=== PATIENT | male | born 1950 | race Caucasian/White ===

== ENCOUNTER 2024-01-10 08:49 | Inpatient (IN) | payer MEDICARE, OTHER, SELFPAY ==
[2024-01-10] VITALS (14 sets, daily range): BP systolic 116–147; BP diastolic 76–104; BMI 24.1; BMI 23.4
[2024-01-10 05:43] LABS: ALT (SGPT) 20 U/L (0-50); AST (SGOT) 19 U/L (17-59); Albumin 4.3 g/dl (3.5-5.0); Alkaline Phosphatase 43 U/L (38-126); Blood Urea Nitrogen 19 mg/dl (9-20); Calcium 10.2 mg/dl (8.4-10.2); Carbon Dioxide 24 mmol/L (22-30); Chloride 105 mmol/L (98-107); Glucose 228 mg/dl (70-99); Potassium 4.5 mmol/L (3.5-5.1); Sodium 138 mmol/L (135-145); Total Bilirubin 0.8 mg/dl (0.2-1.3); Total Protein 6.9 g/dl (6.3-8.2); eGFR > 60.00
[2024-01-10 06:00] LABS: Troponin I 0.017 ng/ml
--- NOTE | 2024-01-10 06:13 | ED.GENMED ---
History of Present Illness
<Yaya Beck DO, Resident - Last Filed: 01/10/24 12:18>
General
Chief Complaint: Chest Pain
Time Seen by Provider: 01/10/24 06:02
History of Present Illness
History of Present Illness:
Pt is a 73 YO M presenting to the ED after an episode of chest tightness and pain intermittently from 2-5 AM. He reports having a donut and coffee last night past his normal meal time and then was awoken by the sensation of chest tightness and pain
with radiating pain to the left arm below the elbow. He took a Tums this morning thinking the discomfort was secondary to heartburn, but it did not resolve symptoms. He is currently stable and without pain, just mild residual chest tightness. He
reports no headaches, SOB, NVD, numbness or tingling in extremities, abdominal pain. He recently had COVID 2 weeks ago and has a history of emphysema and thoracic aneurysm.
If applicable-neuro sx onset
Onset of symptoms known: Yes
Date of onset of symptoms: 01/10/24
Time of onset of symptoms: 02:00
Past History
<Yaya Beck DO, Resident - Last Filed: 01/10/24 12:18>
Past History
ED Past Medical History: HTN, Hypercholesterolemia, NIDDM and Other (urinary retention)
ED Past Surgical History: Urological (TURP) and Other (prostate sx)
Social History
Tobacco: Former smoker
Alcohol: None
Drug: None
Personal:
Living: with family
Employment: Retired
Family History
Family History: Other ([place])
Review of Systems
<Yaya Beck DO, Resident - Last Filed: 01/10/24 12:18>
Review of Systems
Constitutional: Reports no symptoms
EENT: Reports no symptoms
Respiratory: Reports no symptoms
Cardiac: Reports chest pain and other (chest tightness )
ABD/GI: Reports no symptoms
Musculoskeletal: Reports no symptoms
Neurological: Reports no symptoms
Phy Exam
<Yaya Beck DO, Resident - Last Filed: 01/10/24 12:18>
General Physical Exam
General Presentation: well appearing and no apparent distress
General age: appears stated age
General Skin: warm and dry
General Habitus: normal
General Mental: alert
General Hydration: appears well hydrated
Cardiovascular Exam
Cardiovascular Exam: regular rate/rhythm, no edema, no gallop, no JVD, no murmur and normal peripheral pulses
Pulmonary Exam
Pulmonary Exam: lungs clear, no respiratory distress, no rales, chest non tender, no crackles, no rhonchi, no stridor, no wheezing and no cough
Gastrointestinal Exam
Gastrointestinal Exam: non tender, soft, no pulsatile mass and non distended
Psychiatric Exam
Psychiatric Exam: normal mood/affect
Scores
<Yaya Beck DO, Resident - Last Filed: 01/10/24 12:18>
Heart Score for Chest Pain Patients
STEMI patient?: Not applicable
Course
<Yaya Beck DO, Resident - Last Filed: 01/10/24 12:18>
Orders/Labs/Results
Orders:
Orders
01/10/24 05:03
EKG [Electrocardiogram (*1)] Urgent
Reason for Study: Chest Pain
EKG- Treatment ONCE
01/10/24 05:19
Complete Blood Count/With Diff Urgent
Comprehensive Metabolic Panel Urgent
Troponin I Urgent
01/10/24 Breakfast
Regular
At Your Request: Full Participation
Does patient need a safe tray?: No
01/10/24 06:37
CT Chest Angio W/wo Iv Contras Urgent
Comment:
Reason For Exam: chest pain, hx of thoracic aneurysm
01/10/24 07:52
Heparin 6,600 units IV NOW STA
01/10/24 07:[address] Non Medication Order As Directed
Physician Order: PTT 6 hours after initial start of Heparin infusion
Above order entered?: Yes
01/10/24 07:56
NT-proBNP Urgent
Comment: ADD ON
PTT Urgent
Comment: Obtain baseline before beginning heparin infusion if not already collected
Troponin I Urgent
01/10/24 08:00
Flush (0.9% Sodium Chloride) [Flush (Nss)] See Dose Instructions IV PER PROTOCOL
Heparin 98085 Units/250 ml 25,000 units in 250 ml IV PER PROTOCOL
Weight to be used for heparin protocol in kilograms (kg):: 83
Protocol:: DVT/PE
PTT Goal Range to be used:: PTT 73 to 111 seconds
Order type:: Initial
INITIAL Infusion Dose (UNITS/KG/hr) & then follow protocol:: 18 units/kg/hr
Infusion Dose in UNITS/hr & then follow protocol (UNITS/hr):: 1,500
INFUSION RATE in mL/hr & then follow protocol (mL/hr):: 15
For DVT/PE algorithm, re-bolus for low PTT?: Yes
PTT less than or equal to 64 seconds:: Re-bolus 80 units/kg (max 10,000units). Increase by 300 units/hr
(+ 3mL/hr)
PTT 64.1 to 72.9 seconds:: Re-bolus 40 units/kg (max 5,000 units). Increase by 200 units/hr
(+ 2mL/hr)
PTT 73 to 111 seconds:: Target Range. No change in rate.
PTT 111.1 to 130.9 seconds:: Decrease rate by 200 units/hr (- 2 mL/hr)
PTT 131 to 199.9 seconds:: HOLD for 1 hr. Then decrease by 300 units/hr (- 3mL/hr)
PTT greater than or equal to 200 seconds:: HOLD for 2 hrs & Notify Provider. Then decrease by 300 units/hr
(- 3mL/hr)
Lab follow-up:: Each change, PTT q6h until 2 consecutive are therapeutic. Then
PTT daily.
01/10/24 08:08
Heparin 6,600 units IV PRN PRN
01/10/24 08:09
Heparin 3,300 units IV PRN PRN
01/10/24 08:17
Admit/Transfer Patient As Directed
Co-Sign Provider:
Level of Care: Inpatient admission
Assign to:: Telemetry
Physician / Group: Dada Galindo
Diagnosis: PE with RV strain
Reason for Telemetry: Other
Other Reason for Telemetry: new PE
Date to Stop Telemetry: 01/12/24
Time to Stop Telemetry: 11:00
Reason for Hospitalization: PE with RV strain
Expected length of stay greater than two midnights?: Yes
ELOS- Estimated Length of Stay in days: 3
I certify the patient meets the requirements for IP care: Yes
01/10/24 08:20
Code Status As Directed
Resuscitation Status: Full Code
01/10/24 08:22
Add On- LAB Routine
Tests Added?: Pro-BNP
Consult Pulmonary [PULMONARY CONSULT] Routine
Consulting Provider: Leighann Alexis
Was physician already notified: Yes
Reason for consult: PE with RV strain
Venous Doppler Lwr Ext Bilat [US Periph Venous LOWER Ext Arnel] Routine
Comment:
Reason For Exam: PE
01/10/24 08:30
Heparin 74393 Units/250 ml 25,000 units in 250 ml IV PER PROTOCOL
Weight to be used for heparin protocol in kilograms (kg):: 83
Protocol:: DVT/PE
PTT Goal Range to be used:: PTT 73 to 111 seconds
Order type:: Initial
INITIAL Infusion Dose (UNITS/KG/hr) & then follow protocol:: 18 units/kg/hr
Infusion Dose in UNITS/hr & then follow protocol (UNITS/hr):: 1,500
INFUSION RATE in mL/hr & then follow protocol (mL/hr):: 15
For DVT/PE algorithm, re-bolus for low PTT?: Yes
PTT less than or equal to 64 seconds:: Re-bolus 80 units/kg (max 10,000units). Increase by 300 units/hr
(+ 3mL/hr)
PTT 64.1 to 72.9 seconds:: Re-bolus 40 units/kg (max 5,000 units). Increase by 200 units/hr
(+ 2mL/hr)
PTT 73 to 111 seconds:: Target Range. No change in rate.
PTT 111.1 to 130.9 seconds:: Decrease rate by 200 units/hr (- 2 mL/hr)
PTT 131 to 199.9 seconds:: HOLD for 1 hr. Then decrease by 300 units/hr (- 3mL/hr)
PTT greater than or equal to 200 seconds:: HOLD for 2 hrs & Notify Provider. Then decrease by 300 units/hr
(- 3mL/hr)
Lab follow-up:: Each change, PTT q6h until 2 consecutive are therapeutic. Then
PTT daily.
01/10/24 11:18
Acetaminophen [Tylenol] 650 mg PO Q4HPRN PRN
Bisacodyl [Dulcolax] 10 mg RECTAL [id number] PRN
Docusate W/Senna [Senokot-S] 1 tablet PO BIDPRN PRN
Polyethylene Glycol Powder [Miralax] 17 grams PO DAILYPRN PRN
01/10/24 11:18
Heparin Protocol- PTT Orders As Directed
PTT per Heparin protocol: -Obtain CBC and baseline PTT - if not already collected.
-Obtain PTT 6 hours from start of infusion. Then, every 6 hours until 2 consecutive
PTT's are therapeutic. Then, PTT Daily.
-With each rate change, obtain PTT every 6 hours until 2 consecutive PTT's are
therapeutic. Then, PTT Daily.
Activity As Directed
Activity Level: Bedrest
Bedside Commode
Notify MD As Directed
Notify physician if: PTT is greater than or equal to 200.
Vital Signs As Directed
Frequency: Per unit guidelines
O2 Therapy [RESP] Routine
Titrate/Wean O2 to maintain O2 sat greater than (%): 88
01/10/24 16:00
METFORMIN HCl [Glucophage] 850 mg PO TID
01/11/24 06:00
Basic Metabolic Panel IN AM
Complete Blood Count/No Diff IN AM
Troponin I IN AM
01/11/24 08:00
Allopurinol [Zyloprim] 100 mg PO DAILY
Atorvastatin [Lipitor] 20 mg PO Daily
01/12/24 06:00
Basic Metabolic Panel IN AM
Complete Blood Count/No Diff IN AM
01/12/24 11:00
DC Protocol for Telemetry ONCE
Abnormal Lab Results
01/10/24 01/10/24
05:19 07:56
RBC 4.41 L 10^6/uL
(4.70-6.10)
MCH 35.4 H pg
(27.0-31.0)
MCHC 37.8 H g/dL
(33.0-37.0)
Abs Immat Gran (auto) 0.1 H 10^3/uL
(0-0.05)
Absolute Neuts (auto) 6.8 H 10^3/uL
(1.4-6.5)
Immature Gran % 0.7 H %
(0-0.5)
Lymphocytes % 16.5 L %
(20.5-51.1)
Glucose 228 H mg/dl
(70-99)
Troponin I 0.214 H* D ng/ml
01/10/24 05:19
01/10/24 05:19
Vital Signs
Initial and Last Documented VS:
Initial Vital Signs
Temp Pulse Resp BP Pulse Ox
97.7 F 70 14 130/81 98
01/10/24 05:11 01/10/24 05:11 01/10/24 05:11 01/10/24 05:11 01/10/24 05:11
Last Documented Vital Signs
Temp Pulse Resp BP Pulse Ox
97.7 F 77 19 122/76 96
01/10/24 05:11 01/10/24 10:30 01/10/24 10:30 01/10/24 10:00 01/10/24 10:30
Aleshialt;Omi Sheppard, - Last Filed: 01/10/24 08:04>
Orders/Labs/Results
Orders:
Orders
01/10/24 05:03
EKG [Electrocardiogram (*1)] Urgent
Reason for Study: Chest Pain
EKG- Treatment ONCE
01/10/24 05:19
Complete Blood Count/With Diff Urgent
Comprehensive Metabolic Panel Urgent
Troponin I Urgent
01/10/24 Breakfast
Regular
At Your Request: Full Participation
Does patient need a safe tray?: No
01/10/24 06:37
CT Chest Angio W/wo Iv Contras Urgent
Comment:
Reason For Exam: chest pain, hx of thoracic aneurysm
01/10/24 07:52
Heparin 6,600 units IV NOW STA
01/10/24 07:[address] Non Medication Order As Directed
Physician Order: PTT 6 hours after initial start of Heparin infusion
Above order entered?: Yes
01/10/24 07:56
NT-proBNP Urgent
Comment: ADD ON
PTT Urgent
Comment: Obtain baseline before beginning heparin infusion if not already collected
Troponin I Urgent
01/10/24 08:00
Flush (0.9% Sodium Chloride) [Flush (Nss)] See Dose Instructions IV PER PROTOCOL
Heparin 70790 Units/250 ml 25,000 units in 250 ml IV PER PROTOCOL
Weight to be used for heparin protocol in kilograms (kg):: 83
Protocol:: DVT/PE
PTT Goal Range to be used:: PTT 73 to 111 seconds
Order type:: Initial
INITIAL Infusion Dose (UNITS/KG/hr) & then follow protocol:: 18 units/kg/hr
Infusion Dose in UNITS/hr & then follow protocol (UNITS/hr):: 1,500
INFUSION RATE in mL/hr & then follow protocol (mL/hr):: 15
For DVT/PE algorithm, re-bolus for low PTT?: Yes
PTT less than or equal to 64 seconds:: Re-bolus 80 units/kg (max 10,000units). Increase by 300 units/hr
(+ 3mL/hr)
PTT 64.1 to 72.9 seconds:: Re-bolus 40 units/kg (max 5,000 units). Increase by 200 units/hr
(+ 2mL/hr)
PTT 73 to 111 seconds:: Target Range. No change in rate.
PTT 111.1 to 130.9 seconds:: Decrease rate by 200 units/hr (- 2 mL/hr)
PTT 131 to 199.9 seconds:: HOLD for 1 hr. Then decrease by 300 units/hr (- 3mL/hr)
PTT greater than or equal to 200 seconds:: HOLD for 2 hrs & Notify Provider. Then decrease by 300 units/hr
(- 3mL/hr)
Lab follow-up:: Each change, PTT q6h until 2 consecutive are therapeutic. Then
PTT daily.
01/10/24 08:08
Heparin 6,600 units IV PRN PRN
01/10/24 08:09
Heparin 3,300 units IV PRN PRN
01/10/24 08:17
Admit/Transfer Patient As Directed
Co-Sign Provider:
Level of Care: Inpatient admission
Assign to:: Telemetry
Physician / Group: Dada Galindo
Diagnosis: PE with RV strain
Reason for Telemetry: Other
Other Reason for Telemetry: new PE
Date to Stop Telemetry: 01/12/24
Time to Stop Telemetry: 11:00
Reason for Hospitalization: PE with RV strain
Expected length of stay greater than two midnights?: Yes
ELOS- Estimated Length of Stay in days: 3
I certify the patient meets the requirements for IP care: Yes
01/10/24 08:20
Code Status As Directed
Resuscitation Status: Full Code
01/10/24 08:22
Add On- LAB Routine
Tests Added?: Pro-BNP
Consult Pulmonary [PULMONARY CONSULT] Routine
Consulting Provider: Leighann Alexis
Was physician already notified: Yes
Reason for consult: PE with RV strain
Venous Doppler Lwr Ext Bilat [US Periph Venous LOWER Ext Arnel] Routine
Comment:
Reason For Exam: PE
01/10/24 08:30
Heparin 62968 Units/250 ml 25,000 units in 250 ml IV PER PROTOCOL
Weight to be used for heparin protocol in kilograms (kg):: 83
Protocol:: DVT/PE
PTT Goal Range to be used:: PTT 73 to 111 seconds
Order type:: Initial
INITIAL Infusion Dose (UNITS/KG/hr) & then follow protocol:: 18 units/kg/hr
Infusion Dose in UNITS/hr & then follow protocol (UNITS/hr):: 1,500
INFUSION RATE in mL/hr & then follow protocol (mL/hr):: 15
For DVT/PE algorithm, re-bolus for low PTT?: Yes
PTT less than or equal to 64 seconds:: Re-bolus 80 units/kg (max 10,000units). Increase by 300 units/hr
(+ 3mL/hr)
PTT 64.1 to 72.9 seconds:: Re-bolus 40 units/kg (max 5,000 units). Increase by 200 units/hr
(+ 2mL/hr)
PTT 73 to 111 seconds:: Target Range. No change in rate.
PTT 111.1 to 130.9 seconds:: Decrease rate by 200 units/hr (- 2 mL/hr)
PTT 131 to 199.9 seconds:: HOLD for 1 hr. Then decrease by 300 units/hr (- 3mL/hr)
PTT greater than or equal to 200 seconds:: HOLD for 2 hrs & Notify Provider. Then decrease by 300 units/hr
(- 3mL/hr)
Lab follow-up:: Each change, PTT q6h until 2 consecutive are therapeutic. Then
PTT daily.
01/10/24 11:18
Acetaminophen [Tylenol] 650 mg PO Q4HPRN PRN
Bisacodyl [Dulcolax] 10 mg RECTAL [id number] PRN
Docusate W/Senna [Senokot-S] 1 tablet PO BIDPRN PRN
Polyethylene Glycol Powder [Miralax] 17 grams PO DAILYPRN PRN
01/10/24 11:18
Heparin Protocol- PTT Orders As Directed
PTT per Heparin protocol: -Obtain CBC and baseline PTT - if not already collected.
-Obtain PTT 6 hours from start of infusion. Then, every 6 hours until 2 consecutive
PTT's are therapeutic. Then, PTT Daily.
-With each rate change, obtain PTT every 6 hours until 2 consecutive PTT's are
therapeutic. Then, PTT Daily.
Activity As Directed
Activity Level: Bedrest
Bedside Commode
Notify MD As Directed
Notify physician if: PTT is greater than or equal to 200.
Vital Signs As Directed
Frequency: Per unit guidelines
O2 Therapy [RESP] Routine
Titrate/Wean O2 to maintain O2 sat greater than (%): 88
01/10/24 16:00
METFORMIN HCl [Glucophage] 850 mg PO TID
01/11/24 06:00
Basic Metabolic Panel IN AM
Complete Blood Count/No Diff IN AM
Troponin I IN AM
01/11/24 08:00
Allopurinol [Zyloprim] 100 mg PO DAILY
Atorvastatin [Lipitor] 20 mg PO Daily
01/12/24 06:00
Basic Metabolic Panel IN AM
Complete Blood Count/No Diff IN AM
01/12/24 11:00
DC Protocol for Telemetry ONCE
Abnormal Lab Results
01/10/24 01/10/24
05:19 07:56
RBC 4.41 L 10^6/uL
(4.70-6.10)
MCH 35.4 H pg
(27.0-31.0)
MCHC 37.8 H g/dL
(33.0-37.0)
Abs Immat Gran (auto) 0.1 H 10^3/uL
(0-0.05)
Absolute Neuts (auto) 6.8 H 10^3/uL
(1.4-6.5)
Immature Gran % 0.7 H %
(0-0.5)
Lymphocytes % 16.5 L %
(20.5-51.1)
Glucose 228 H mg/dl
(70-99)
Troponin I 0.214 H* D ng/ml
01/10/24 05:19
01/10/24 05:19
Vital Signs
Initial and Last Documented VS:
Initial Vital Signs
Temp Pulse Resp BP Pulse Ox
97.7 F 70 14 130/81 98
01/10/24 05:11 01/10/24 05:11 01/10/24 05:11 01/10/24 05:11 01/10/24 05:11
Last Documented Vital Signs
Temp Pulse Resp BP Pulse Ox
97.7 F 77 19 122/76 96
01/10/24 05:11 01/10/24 10:30 01/10/24 10:30 01/10/24 10:00 01/10/24 10:30
<Yaya Beck DO, Resident - Last Filed: 01/10/24 12:18>
MDM/Problems Addressed
Differential Diagnosis Includes:
pulmonary embolism
MDM/Problems Addressed:
Pt is a 73 YO M presenting to the ED after an episode of chest tightness and pain intermittently from 2-[address] Chest shows PE on left side. Heparin drip started.
Chronic conditions affecting care:
Emphysema, lung disease, recent COVID
Acute Exacerbation and/or Progression of Chronic Illness:
Lung disease
<Yaya Beck DO, Resident - Last Filed: 01/10/24 12:18>
*Radiology
Radiology exam reviewed: preliminary read by ED provider
*Pulse Oximetry
Patient hypoxic: no
*EKG
Interpreted by ED Provider?: Yes
EKG Intrepretation Date: 01/10/24
Interpretation: normal
Heart Rate: 65
Rate: normal
Rhythm: sinus
Olean: normal axis
Interval: normal interval
QRS Pattern: low voltage
Ischemia: other (can not rule out inferior infarct)
*Grain Operator Interpretation
Rate: normal
Interpretation: normal
Heart Rate: 85
Rhythm: sinus
*Critical Care Note
Total Time (30-74mins, 75-104mins- exclusive of procedures): 35 minutes
ED Attending Note
<Yaya Beck DO, Resident - Last Filed: 01/10/24 12:18>
-
Portions of this chart may have been created with voice recognition software.� Occasional wrong word or��sound alike� substitutions may have occurred due to the inherent limitations of voice recognition software.
<Omi Sheppard DO - Last Filed: 01/10/24 08:04>
ED Attending Note
Patient seen and examined by attending physician: Yes
I performed a history and physical exam of patient and discussed management with resident, I reviewed resident's note and agree with documented findings and plan of care.: Yes
ED Attending Note:
Agree with resident's note.
Patient with central chest pain this morning. Symptoms are mostly gone. Patient states he had some numbness in his left arm. 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
Vital signs acceptable
General: Awake, Alert, Oriented X3. No acute distress.
Vitals: unremarkable
Head: Atraumatic
Eyes: Pupils equal, EOMI
Throat: Airway intact, no exudates
Neck: Trachea midline
Lungs: Clear and equal b/l
Heart: Regular rate, no murmurs
Abd: Soft, Nontender, No pulsatile mass
Neuro: Nonfocal
Skin: Warm, dry, no rash
Extremities: pulses equal b/l, no edema
EKG shows no ischemic changes
Labs are reassuring
We will repeat troponin at [address] of the chest obtained because the patient described some history of a aortic issue. CT does not show any significant issue with the thoracic aorta but he does have a relatively large PE on the left with some right heart strain per radiology.
Patient meets criteria for a PERT alert. Discussed patient with Dr. Shorty Alexis who recommends anticoagulation only. Heparin ordered. Patient will be admitted.
Critical care statement: A total of 35 minutes of critical care time was provided for this patient. This includes management of unstable vital signs, evaluation of the patient at bedside, reviewing the patient's pertinent medical records, discussion
with consultants, review of old EKGs and review of pertinent medical records. This time with separate from time utilized to perform the aforementioned documented procedures
Discharge Plan
Departure
Patient Disposition: Admit
Date of Disposition: 01/10/24
Time of Disposition: 08:15
Admit to: Telemetry
Presentation/result/management discussed w/ accepting MD/DO: Hospitalist
Patient with high blood pressure during this ER visit?: Yes
Condition: Fair
Discharge Problem:
Pulmonary embolism
Interventions
Interventions:
*Risk Screen - Suicide Last Done: 01/10/24 05:11
*General Assessment Last Done: 01/10/24 05:11
*Neglect/Abuse Screening Last Done: 01/10/24 05:11
ED- Fall Risk Assessment Last Done: 01/10/24 06:21
*ED COVID-19 Vaccine History Last Done: 01/10/24 12:05
ED- Cardiac Assessment Last Done: 01/10/24 06:21
[2024-01-10 06:17] LABS: % Basophils 0.6 % (0-2); % Eosinophils 4.4 % (0-6); % Immature Granulocytes 0.7 % (0-0.5); % Lymphocytes 16.5 % (20.5-51.1); % Monocytes 6.5 % (1.7-9.3); % Neutrophils 71.3 % (42.2-75.2); Absolute Basophils 0.1 10^3/uL (0-0.2); Absolute Eosinophils 0.4 10^3/uL (0-0.7); Absolute Immature Granulocytes 0.1 10^3/uL (0-0.05); Absolute Lymphocytes 1.6 10^3/uL (1.2-3.4); Absolute Monocytes 0.6 10^3/uL (0.1-0.6); Absolute Neutrophils 6.8 10^3/uL (1.4-6.5); Hematocrit 41.3 % (39.0-52.0); Hemoglobin 15.6 g/dL (13.0-18.0); Mean Corp Hgb Conc. 37.8 g/dL (33.0-37.0); Mean Corpuscular Hgb 35.4 pg (27.0-31.0); Mean Corpuscular Volume 93.7 fL (80.0-94.0); Mean Platelet Volume 8.3 fL (7.4-10.4); Nucleated Red Blood Cells % 0 % (-); Platelet Count 252 10^3/uL (130-400); Red Blood Cell Count 4.41 10^6/uL (4.70-6.10); Red Cell Dist. Width 11.9 % (11.5-14.5); White Blood Cell Count 9.5 10^3/uL (4.8-10.8)
--- NOTE | 2024-01-10 07:56 | ED TECH ---
A PERT ALERT was called #[id number]# Per @07:54 AM.
[2024-01-10] MEDS: HEPARIN 6600 UNITS IV ×2 (08:02→22:16)
[2024-01-10] MEDS: HEPARIN 25000 UNITS/250 ML IV (08:07)
[2024-01-10 08:21] LABS: APTT 25.6 Sec (23.4-35.0)
--- NOTE | 2024-01-10 08:23 | HPS.HSE ---
Family Physician
-
Family Physician: Char Lugo
Chief Complaint
-
Left-sided chest discomfort
History of Present Illness
Patient is 73-year-old male with past medical history of essential hypertension, hyperlipidemia, type 2 diabetes, BPH came to ER with new onset of left-sided chest discomfort. This woke patient up from night sleep 2 AM in the morning. Patient was
having some associated diaphoresis and radiation to left arm. Pain was aggravated by cough/deep inspiration. No associated dry cough fever. Denies of palpitation/dizziness.
Denies of any abdominal/ complaints
Of note patient recovering from COVID and was tested positive first on 12/28/2023 and has finished 5 days of Paxlovid course. This was patient's third COVID episode and patient have been vaccinated in the past.
Medical History
Past Medical History
Past Medical History: Reports Other
Additional Past Medical History:
essential hypertension, hyperlipidemia, type 2 diabetes, BPH
Past Surgical History: Reports Other
Social History
Tobacco: Former Smoker
Alcohol: Occasional
Drug: None
Personal:
Living: With Family
Family History
Family History: Not pertinent
Allergies / Home Medications
Allergies reflects when Allergies were last updated in [facility].
Home Medications with original date entered in [facility]
Allergy/Medication List:
Allergies
Allergy/AdvReac Type Severity Reaction Status Date / Time
No Known Allergies Allergy Verified 11/15/18 10:46
Home Medications
allopurinol 100 mg tablet 100 mg PO DAILY 06/24/18
aspirin 81 mg tablet,delayed release 81 mg PO DAILY 06/24/18
lisinopril 20 mg tablet 20 mg PO DAILY 06/24/18
metformin 850 mg tablet 850 mg PO TID 06/24/18
metoprolol tartrate 100 mg tablet 100 mg PO DAILY 06/24/18
simvastatin 40 mg tablet 40 mg PO Daily 10/30/18
acetaminophen 325 mg tablet 650 mg (2 x 325 mg) PO Q4HPRN PRN mild pain/MOCTEZUMA/temp> 100.4F 11/18/18
levofloxacin 500 mg tablet 500 mg PO DAILY #14 tabs 11/18/18
tamsulosin 0.4 mg capsule 0.4 mg PO HS ##30 11/18/18
Review of Systems
-
A 12 point ROS was completed and negative except as noted: Yes
Physical Exam
Vital Signs
Vital Signs
Temp Pulse Resp BP Pulse Ox
97.7 F 85 19 134/84 95
01/10/24 05:11 01/10/24 07:30 01/10/24 07:30 01/10/24 07:12 01/10/24 07:30
Physical Exam
General: No Apparent Distress
HEENT: Atraumatic and Oxygen
Respiratory: Clear
Cardiac: S1/S2 and Regular Rhythm; No Murmur or Rub
GI: Soft, Non Tender, Non Distended and Normal Bowel Sounds; No Organomegaly
Rectal: Deferred by Provider
Musculoskeletal: No Clubbing, No Cyanosis and No Edema
Skin: No Rash
Neuro: Nonfocal/grossly intact
Laboratory Results
-
01/10/24 05:19
01/10/24 05:19
Laboratory Results
Total Bilirubin 0.8 mg/dl (0.2-1.3) 01/10/24 05:19
AST 19 U/L (17-59) 01/10/24 05:19
ALT 20 U/L (0-50) 01/10/24 05:19
Alkaline Phosphatase 43 U/L (38-126) 01/10/24 05:19
Troponin I 0.017 ng/ml 01/10/24 05:19
Impression/Plan
-
CT chest PE
Multiple left-sided pulmonary emboli. Moderate clot burden. Findings suggesting mild right heart strain.
No evidence of aortic dissection.
Mild emphysematous disease. Prior benign granulomatous disease.

1. Left sided PE
-Patient presented with new onset of left-sided chest discomfort.
-CT chest PE done in ER showing large proximal pulmonary arterial left-sided clot
-Minimal troponin elevation with signs of heart RV strain with RV/YAEL ratio of 1
-proBNP 107
-Patient not hypotensive, not hypoxic
-PESI score of 83, class II , 30 day mortality rate of 1.7 to 3.5%
-Lower extremity venous Doppler negative
-No travel history/no malignancy history. Clot is likely provoked by recent COVID infection.
-Maintain on heparin drip for now
-Monitor in hospital for next 24 to 48 hours
-Pulmonology has been asked for further help as well.
2. Essential hypertension
-Hold blood pressure medication unless systolic blood pressure above 160
-Can resume lisinopril first or metoprolol
3. Hyperlipidemia
-Maintain on home dose of simvastatin
4. [id number] diabetes mellitus
-Continue metformin and sliding scale
5. Troponin elevation
-PE related, Nonischemic cardiomyopathy related
DVT PPX - heparin drip
Full code
Total time spent : 78 mins
I personally saw and examined the patient.
I have reviewed all diagnostic interpretations and treatment plans as written.
Time includes patient management by me, time spent at the patients bedside, time to review lab and imaging results, discussing patient care, documentation in the medical record, and time spent with the family or caregiver and discussing care plan
with RN/Consultants.
[2024-01-10 08:39] LABS: Troponin I 0.214 ng/ml
[2024-01-10 09:43] LABS: NT-proBNP 107 pg/ml
--- NOTE | 2024-01-10 13:07 | CON.PUL ---
Consultation
Consultation Request
Date/Time Consultation Requested: 01/10/24
Date/Time Consultation Performed: 01/10/24
Performing Provider: Vanesa
Reason for Consultation: PE
Medical History
-
History of Present Illness:
Patient is a 73-year-old male with previous history of hypertension, diabetes presenting to ER with acute onset of left-sided chest discomfort. He was having some associated diaphoresis and radiation to left arm. His pain was aggravated by
cough and deep inspiration. On arrival to ER, he underwent CT showing mild thrombus formation in the distal left main pulmonary artery extending into segmental and subsegmental branches. He was hemodynamically stable in ER, there was no indication
to administer tPA. He is now started on IV heparin drip. He has never had history of VTE in the past. Of note, he was positive for COVID 12/28/2023 and finished 5 days of Paxlovid. He also has significant family history of VTE in his daughter who
is currently on anticoagulation and follows with outpatient hematology.
He does have a history of emphysema, follows with outpatient pulmonology at [place].
Past Medical History
Past Medical History: Other (see below)
Social History
Tobacco: Former Smoker
Alcohol: None
Drug: None
Family History
Family History: Reviewed & Not Pertinent
Allergies / Home Medications
Allergies
Allergy/AdvReac Type Severity Reaction Status Date / Time
No Known Allergies Allergy Verified 11/15/18 10:46
Home Medications
�Medication �Instructions �Recorded �Confirmed �Last Taken �Type
allopurinol 100 mg tablet 100 mg PO DAILY 06/24/18 11/15/18 10/29/18 History
aspirin 81 mg tablet,delayed 81 mg PO DAILY 06/24/18 11/15/18 10/29/18 History
release
lisinopril 20 mg tablet 20 mg PO DAILY 06/24/18 11/15/18 10/29/18 History
metformin 850 mg tablet 850 mg PO TID 06/24/18 11/15/18 10/29/18 History
metoprolol tartrate 100 mg tablet 100 mg PO DAILY 06/24/18 11/15/18 10/29/18 History
simvastatin 40 mg tablet 40 mg PO Daily 10/30/18 11/15/18 10/29/18 History
acetaminophen 325 mg tablet 650 mg (2 x 325 mg) PO Q4HPRN PRN 11/18/18 Unknown Rx
mild pain/MOCTEZUMA/temp> 100.4F
levofloxacin 500 mg tablet 500 mg PO DAILY #14 tabs 11/18/18 Unknown Rx
tamsulosin 0.4 mg capsule 0.4 mg PO HS ##30 11/18/18 Unknown Rx
Review of Systems
-
History Source: Patient
All other systems: Negative unless noted
Vitals / Labs / Diagnostic Testing
Vital Signs
Temp Pulse Resp BP Pulse Ox
97.7 F 77 19 122/76 96
01/10/24 05:11 01/10/24 10:30 01/10/24 10:30 01/10/24 10:00 01/10/24 10:30
Lab Data
01/10/24 05:19
01/10/24 05:19
Laboratory Results
01/10/24
07:56
APTT 25.6
Diagnostic Testing:
Physical Exam
-
HEENT: Normocephalic, Anicteric and Moist Mucous Membranes
Cardiovascular: S1/S2 and Regular Rhythm
Respiratory: Clear and Non-Labored Respirations
GI: Soft, Non Distended and Non Tender
Neurology: Awake, Alert, Oriented, AO x 3 and No Motor Deficits
Skin: Warm, Dry and Good Color
General: Comfortable and Other (NAD)
Assessment
-
Patient is a 73-year-old male with previous history of hypertension, diabetes presenting to ER with acute onset of left-sided chest discomfort. He was having some associated diaphoresis and radiation to left arm. His pain was aggravated by
cough and deep inspiration. On arrival to ER, he underwent CT showing mild thrombus formation in the distal left main pulmonary artery extending into segmental and subsegmental branches. He was hemodynamically stable in ER, there was no indication
to administer tPA. He is now started on IV heparin drip. Of note, he was positive for COVID 12/28/2023 and finished 5 days of Paxlovid. We are consulted for eval.
Acute L sided PE
L sided chest pain
Elevated trops, non [place] related
Recent COVID illness
Family history of VTE
Conditions present prior to admission
Hypertension
Hyperlipidemia
Type 2 diabetes
BPH s/p TURP
Emphysema
Former smoker
Plan
No oxygen was needed on admission, currently saturating >90% on RA
Prior history of lung disease is noted including emphysema
Follows with outpatient pulmonology at [place]
States he obtains yearly CT screening there
No prior PFTs for review
CXR/CT obtained indicating new L sided PE
Duplex negative
Small burden with elevated trops but otherwise hemodynamically stable
Agree that there is no indication for tPA, he is now on IV heparin
Other imaging reviewed
Will need to transition to oral anticoagulation pending insurance
No prior echo for review
We will need updated study while inpatient
Smoking history noted
Encourage continued smoking cessation
Daughter has history of VTE, currently following with hematology
May need to have workup as an outpatient
May have been provoked by recent episode of COVID however family predominance should likely be ruled out
We will follow
Diagnostic Data
Chest X-Ray:
CT Scan: CTA 01/10/24- There is mild thrombus formation in the distal left main pulmonary artery extending into segmental and subsegmental vessels of the left upper lobe, left lower lobe and lingula. The right ventricle is slightly larger than the
left with a RV/LV ratio greater than 1. It is 1.1.
There are no abnormal pleural or parenchymal pulmonary masses. There is no significant parenchymal airspace disease.There is no pleural effusion.There are no abnormal mediastinal masses.
There is no hilar lymphadenopathy.There is no mediastinal lymphadenopathy.There is no axillary lymphadenopathy.
The osseous structures show mild degenerative disease. No acute fractures are noted.
There is mild cystic change in lungs consistent with emphysematous disease. There are also findings consistent with prior benign granulomatous disease.
Duplex - No sonographic evidence for lower extremity venous thrombosis.
Echo:
PFT's:
Reports and relevant images were personally reviewed.
Total time spent on this consultation __75__ includes review of history, physical exam, medications, laboratory data, personal review of imaging, extensive review of outpatient records, discussion with care team and respiratory therapy.
[2024-01-10 15:07] LABS: APTT 110.9 Sec (23.4-35.0)
[2024-01-10] MEDS: GLUCOPHAGE 850 MG PO ×2 (15:52→22:45)
--- NOTE | 2024-01-10 16:55 | PTCARENOTE ---
Patient resting comfortably, no c/o pian. Family at bedside. Plan of care discussed with patient and spouse.
--- NOTE | 2024-01-10 16:55 | PTCARENOTE ---
Report called to [facility]. Patient to go to room 415-1
[2024-01-10 17:19] LABS: Glucose - Point of Care 194 mg/dl (70-99)
--- NOTE | 2024-01-10 18:27 | PTCARENOTE ---
Rec'd pt from ER. walked from stretcher to bed. denies pain. Heparin drip infusing at 1500 units/hr. next ptt due at 2044. call [facility] in reach.
[2024-01-10] MEDS: NOVOLOG FLEXPEN-LOW RESISTANCE 1 UNITS SC (18:32)
[2024-01-10 21:07] LABS: APTT 53.6 Sec (23.4-35.0)
[2024-01-10 21:40] LABS: Glucose - Point of Care 225 mg/dl (70-99)
[2024-01-11] MEDS: HEPARIN 25000 UNITS/250 ML IV ×2 (01:45→17:55)
[2024-01-11 03:01] VITALS: BP 106/74
[2024-01-11 07:18] LABS: Glucose - Point of Care 243 mg/dl (70-99)
[2024-01-11 07:58] VITALS: BP 136/78
[2024-01-11 08:03] LABS: Hemoglobin 15.5 g/dL (13.0-18.0); Mean Corp Hgb Conc. 37.8 g/dL (33.0-37.0); Mean Corpuscular Hgb 35.4 pg (27.0-31.0); Mean Corpuscular Volume 93.6 fL (80.0-94.0); Mean Platelet Volume 8.8 fL (7.4-10.4); Platelet Count 247 10^3/uL (130-400); Red Blood Cell Count 4.38 10^6/uL (4.70-6.10); Red Cell Dist. Width 11.9 % (11.5-14.5); White Blood Cell Count 10.4 10^3/uL (4.8-10.8)
[2024-01-11] MEDS: GLUCOPHAGE 850 MG PO ×3 (08:26→22:12)
[2024-01-11] MEDS: LIPITOR 20 MG PO (08:26)
[2024-01-11] MEDS: ZYLOPRIM 100 MG PO (08:26)
[2024-01-11] MEDS: NOVOLOG FLEXPEN-LOW RESISTANCE 2 UNITS SC ×3 (08:27→16:21)
[2024-01-11 08:40] LABS: APTT 191.1 Sec (23.4-35.0)
[2024-01-11 08:49] LABS: Blood Urea Nitrogen 19 mg/dl (9-20); Calcium 9.4 mg/dl (8.4-10.2); Carbon Dioxide 21 mmol/L (22-30); Chloride 101 mmol/L (98-107); Estimated Creatinine Clearance 57 ml/min; Glucose 164 mg/dl (70-99); Potassium 4.2 mmol/L (3.5-5.1); Sodium 136 mmol/L (135-145); eGFR 58.01
--- NOTE | 2024-01-11 09:49 | CM ---
Addendum entered by Meagan Kessler 01/11/24 11:34:
Correction, Eliquis cost is $549.90, updated. 30 day coupon provided.
Original Note:
Patient seen bedside.
DX PE, on hep gtt.
IA completed.
Patient lives with spouse in a 2 story home with 2 ABEBA.
No difficulty with stairs.
No assistive devices.
Patient independent prior to admission without AD.
Patient has not have VN, denies home care needs at this time.
CM checked Eliquis and Xarelto costs and per [employer] [facility] check:
Eliquis $135.60 per month
Xarelto #541.40 per month
PCP: Dr Lugo
Pharmacy: [facility]
Plan: home no needs anticipated.
--- NOTE | 2024-01-11 11:02 | W.PN.PUL3 ---
Today's Communication / Plan
-
Doing well today, remains on IV heparin
Transition to OAC per team
Awaiting ECHO in AM
Outpatient pulmonary FU recommended, seen at [facility]
Dischage planning hopefully in next 24 hours
We reviewed plan of care in detail today with family present at bedside
Assessment
-
Patient is a 73-year-old male with previous history of hypertension, diabetes presenting to ER with acute onset of left-sided chest discomfort. He was having some associated diaphoresis and radiation to left arm. His pain was aggravated by
cough and deep inspiration. On arrival to ER, he underwent CT showing mild thrombus formation in the distal left main pulmonary artery extending into segmental and subsegmental branches. He was hemodynamically stable in ER, there was no indication
to administer tPA. He is now started on IV heparin drip. Of note, he was positive for COVID 12/28/2023 and finished 5 days of Paxlovid. We are consulted for eval.
Acute L sided PE
L sided chest pain
Elevated trops, non [place] related
Recent COVID illness
Family history of VTE
Conditions present prior to admission
Hypertension
Hyperlipidemia
Type 2 diabetes
BPH s/p TURP
Emphysema
Former smoker
Plan
No oxygen was needed on admission, currently saturating >90% on RA
Prior history of lung disease is noted including emphysema
Follows with outpatient pulmonology at [place]
States he obtains yearly CT screening there
No prior PFTs for review
CXR/CT obtained indicating new L sided PE
Duplex negative
Small burden with elevated trops but otherwise hemodynamically stable
Agree that there is no indication for tPA, he is now on IV heparin
Other imaging reviewed
Transition to OAC tonight
No prior echo for review
We will need updated study while inpatient, pending for friday
Smoking history noted
Encourage continued smoking cessation
Daughter has history of VTE, currently following with hematology
May need to have workup as an outpatient
May have been provoked by recent episode of COVID however family predominance should likely be ruled out
Outpatient pulmonary FU at [facility] Dr Andrea Handy
Discharge planning in next 24 hours when ECHO obtained
Diagnostic Data
Chest X-Ray:
CT Scan: CTA 01/10/24- There is mild thrombus formation in the distal left main pulmonary artery extending into segmental and subsegmental vessels of the left upper lobe, left lower lobe and lingula. The right ventricle is slightly larger than the
left with a RV/LV ratio greater than 1. It is 1.1.
There are no abnormal pleural or parenchymal pulmonary masses. There is no significant parenchymal airspace disease.There is no pleural effusion.There are no abnormal mediastinal masses.
There is no hilar lymphadenopathy.There is no mediastinal lymphadenopathy.There is no axillary lymphadenopathy.
The osseous structures show mild degenerative disease. No acute fractures are noted.
There is mild cystic change in lungs consistent with emphysematous disease. There are also findings consistent with prior benign granulomatous disease.
Duplex - No sonographic evidence for lower extremity venous thrombosis.
Echo:
PFT's:
Reports and relevant images were personally reviewed.
Total time spent on this consultation __51__ includes review of history, physical exam, medications, laboratory data, personal review of imaging, extensive review of outpatient records, discussion with care team and respiratory therapy.
Subjective Data
-
Date of Service:
Date of Service: January 11, 2024
Chief Complaint: Pulmonary Follow Up
Subjective:
no new events/complaints
stable on RA
remains on IV heparin
Objective Data
Data Reviewed
Vital Signs / I&O / Oxygen:
Vital Signs
Temp Pulse Resp BP Pulse Ox
97.9 F 72 16 136/78 97
01/11/24 07:58 01/11/24 07:58 01/11/24 07:58 01/11/24 07:58 01/11/24 07:58
Intake and Output
0701/11/24 01/12/24
06:59 06:59 06:59
Intake Total 1440 / 1440
Output Total 1400 / 1400
Balance 40 / 40
SaO2 97
Physical Exam
General: Comfortable and Other (NAD)
HEENT: Normocephalic, Anicteric and Moist Mucous Membranes
Cardiovascular: S1-S2 and Regular Rhythm
Respiratory: Clear and Non-Labored Respirations
GI: Soft, Non Distended and Non Tender
Neurology: Awake, Alert, Oriented, AO x 3 and No Motor Deficits
Skin: Warm, Dry and Other (hyperpigmented skin)
Labs/Micro/Reports
Lab Data
01/11/24 05:22
01/11/24 05:22
Laboratory Results
01/10/24 01/10/24 01/11/24
14:44 20:49 05:22
APTT 110.9 H 53.6 H 191.1 H*
[2024-01-11 11:19] VITALS: BP 137/87
--- NOTE | 2024-01-11 11:44 | W.PN.HOSP.TC ---
Today's Communication/Plan
-
switch to eliquis in evening
TTE tomorrow
dischargeable after TTE
Assessment / Plan
Assessment / Plan
CT chest PE
Multiple left-sided pulmonary emboli. Moderate clot burden. Findings suggesting mild right heart strain.
No evidence of aortic dissection.
Mild emphysematous disease. Prior benign granulomatous disease.

1. Left sided PE
-Patient presented with new onset of left-sided chest discomfort.
-CT chest PE done in ER showing large proximal pulmonary arterial left-sided clot
-Minimal troponin elevation with signs of heart RV strain with RV/YAEL ratio of 1
-proBNP 107
-Patient not hypotensive, not hypoxic
-PESI score of 83, class II , 30 day mortality rate of 1.7 to 3.5%
-Lower extremity venous Doppler negative
-No travel history/no malignancy history. Clot is likely provoked by recent COVID infection.
-Daughter has h/o of portal vein thrombus provoked from covid/. no reported hematological condition.
-Pulmonology input reviewed, echocardiogram ordered
-Eliquis copay is high and patient planning to discuss with primary pulm after discharge. first month coupon provided
-transition to eliquis in evening
2. Essential hypertension
-Hold blood pressure medication unless systolic blood pressure above 160
-Can resume lisinopril first or metoprolol
3. Hyperlipidemia
-Maintain on home dose of simvastatin
4. Rxy-bjhzovq-lzeohcjia diabetes mellitus
-Continue metformin and sliding scale
5. Troponin elevation
-PE related, Nonischemic cardiomyopathy related
DVT PPX - heparin drip
Full code
Anticipated Discharge: Within 24 hours
Subjective/Interval History
-
Date of Service: January 11, 2024
resting comfortably in bed
no issues overnight
Objective Data
-
Labs:
Laboratory Results
01/11/24 01/11/24
05:22 16:00
WBC 10.4
Hgb 15.5
Hct 41.0
Plt Count 247
APTT 191.1 H* Pending
Sodium 136
Potassium 4.2
Chloride 101
Carbon Dioxide 21 L
BUN 19
Creatinine 1.3
Glucose 164 H
Calcium 9.4
Vital Signs:
Vital Signs
Temp Pulse Resp BP Pulse Ox
97.5 F 75 18 137/87 95
01/11/24 11:19 01/11/24 11:19 01/11/24 11:19 01/11/24 11:19 01/11/24 11:19
I&O
01/10/24 01/11/24 01/12/24
06:59 06:59 06:59
Intake Total 1440 / 1440
Output Total 1400 / 1400
Balance 40 / 40
Review of Systems
-
All other systems: Reviewed and negative
Physical Exam
-
General: No Apparent Distress and Comfortable
HEENT: Negative Oxygen
Respiratory: Clear to Auscultation
Cardiac: Regular Rhythm and S1/S2; Negative Murmur or Rub
GI: Soft, Nontender, Nondistended and Normal Bowel Sounds
Musculoskeletal: No Edema
Neuro: Awake, Alert, Oriented, No Motor Deficits and Nonfocal/Grossly Intact
Psych: Calm
--- NOTE | 2024-01-11 11:56 | PTCARENOTE ---
Per Dr Galindo pt ok to go sit with his family in the family waiting room. RN walked with pt to the waiting room. Made him aware that is not to overexert himself. Family updated and instructed to let the RN know if he needs anything.
[2024-01-11 12:21] LABS: Glucose - Point of Care 247 mg/dl (70-99)
[2024-01-11] MEDS: AMARYL 1 MG PO (12:23)
[2024-01-11] MEDS: ZESTRIL 10 MG PO (12:23)
[2024-01-11 14:53] VITALS: BP 124/79
[2024-01-11 16:19] LABS: Glucose - Point of Care 235 mg/dl (70-99)
[2024-01-11 16:42] LABS: APTT 72.8 Sec (23.4-35.0)
--- NOTE | 2024-01-11 16:49 | PTCARENOTE ---
dr rose aware pt with heart rate running 121-128. bp 141/99 97% on RA. pt denies cp or palpitations. no sob. pt is sitting in bed eating dinner. dr rose will order lopressor.
[2024-01-11] MEDS: HEPARIN 3300 UNITS IV (16:52)
[2024-01-11] MEDS: TOPROL XL 50 MG PO (17:03)
[2024-01-11 19:00] VITALS: BP 122/79
[2024-01-11] MEDS: ELIQUIS 10 MG PO (20:25)
[2024-01-11 21:07] LABS: Glucose - Point of Care 272 mg/dl (70-99)
[2024-01-11] MEDS: FLOMAX 0.4 MG PO (22:12)
[2024-01-11 23:00] VITALS: BP 111/75
[2024-01-12 03:00] VITALS: BP 104/61
[2024-01-12 07:00] VITALS: BP 121/74
[2024-01-12 07:14] LABS: Glucose - Point of Care 220 mg/dl (70-99)
--- NOTE | 2024-01-12 07:49 | W.PN.HOSP.TC ---
Addendum entered and electronically signed by Gena Perez MD 01/12/24 18:04:
73 y/o male with left sided chest pain. No pain now
CVS: S1-S2 normal
Chest: CTA B/L
Abdomen: Soft, NT / Bowel sounds present
Extremities: No edema, normal pulses
[employer]: Non focal exam
# Acute left-sided PE
Chest pain secondary to this
Elevated troponin secondary to PE and non-NH related. Follow till peaks. Echo without any wall motion abnormalities
Not on Oxygen
Patient has a family history of VTE
Patient was on heparin drip-no changed to Eliquis
ECHO -normal left ventricular size, wall thickness and systolic function. Ejection fraction 50 to 60%. Normal diastolic function. Mild to moderate aortic root dilatation
# Recent COVID infection-Was positive for COVID 12/28/2023 and finished 5 days of Paxlovid.
# Acute kidney apsvqk-fkrwdwsy-alnrews nephropathy versus retention. Check bladder scan. 1 L of IV fluids. Follow creatinine in the morning
# Mild Elevation in creatinine - Possible HILARIO. Needs repeat
# History of emphysema
# Hypertension-lisinopril, metoprolol
# Hyperlipidemia-simvastatin
# Diabetes-on glimepiride, metformin. Increase Glimepiride. Check HbA1C
# History of gout-continue allopurinol
# Enlarged prostate with history of TURP-continue Flomax
# Psoriasis
# Ex-smoker
# Full Code
Case management checked [facility] for Eliquis it is over $500. We will check with primary physician can give 2 months supply of samples. If not patient may need to be on Coumadin with Lovenox bridge and learn how to do it.
Discussed with case management
Original Note:
Today's Communication/Plan
-
Increase glimepiride to 2 mg daily
Continue Eliquis
Echocardiography today
Discharge planning
Assessment / Plan
Assessment / Plan
Assessment: 73-year-old male with past medical history of essential hypertension, hyperlipidemia, and type 2 diabetes, who presented to ED 0n 01/09 with new onset of left-sided chest discomfort/pain associated with diaphoresis, radiation to left
arm and aggravated by cough/deep inspiration.
Impression:
L sided chest pain
Improved (Acute L sided PE)
Elevated trops
non [place] related
Recent COVID illness
Family history of VTE (portal vein thrombosis, daughter)
Conditions present prior to admission:
Hypertension
Hyperlipidemia
Type 2 diabetes
BPH s/p TURP
Emphysema
Former smoker
1. Left sided PE
-Presentation with new onset of left-sided chest discomfort.
-CT chest PE 01/10/2024 with large proximal pulmonary arterial left-sided clot.
-Clot is likely provoked by recent COVID infection, No travel history/no malignancy history.
-Elevated troponin likely due to RV strain, NH unlikely (patient hemodynamically stable).
-proBNP 107.
-Lower extremity venous Doppler negative.
-PESI score of 83, class II , 30 day mortality rate of 1.7 to 3.5%
-Follows pulmonology outpatient at [place], yearly CT negative per patient.
-Echocardiography today
-Continue Eliquis, will continue for at least 3 months upon discharge. First month coupon provided for high Eliquis copay, discussed Eliquis plan with outpatient primary pulmonary.
2. Essential hypertension
-Hold blood pressure medication unless systolic blood pressure above 160
-Can resume lisinopril first or metoprolol
3. Hyperlipidemia
-Maintain on home dose of simvastatin
4. Vts-latqzlu-rsckajkzc diabetes mellitus
-Suboptimal blood glucose control
-Increase glimepiride to 2 mg daily
-Continue metformin and sliding scale
5. Troponin elevation
-PE related, Nonischemic cardiomyopathy related
DVT PPX - heparin drip
Full code

Data:
CT chest angio 01/10/2024:
Multiple left-sided pulmonary emboli. Moderate clot burden. Findings suggesting mild right heart strain.
No evidence of aortic dissection.
Mild emphysematous disease. Prior benign granulomatous disease.
Anticipated Discharge: Within 24 hours
Subjective/Interval History
-
Date of Service: January 12, 2024
Objective Data
-
Labs:
Laboratory Results
01/11/24 01/12/24
23:00 07:26
WBC Pending
Hgb Pending
Hct Pending
Plt Count Pending
APTT Cancelled
Sodium Pending
Potassium Pending
Chloride Pending
Carbon Dioxide Pending
BUN Pending
Creatinine Pending
Glucose Pending
Calcium Pending
Vital Signs:
Vital Signs
Temp Pulse Resp BP Pulse Ox
97.6 F 89 18 104/61 97
01/12/24 03:00 01/12/24 03:00 01/12/24 03:00 01/12/24 03:00 01/12/24 03:00
I&O
01/11/24 01/12/24 01/13/24
06:59 06:59 06:59
Intake Total 1440 / 1440 600 / 600
Output Total 1400 / 1400 250 / 250
Balance 40 / 40 350 / 350
Review of Systems
-
History Source: Patient
All other systems: Not reviewed unless documented
Constitutional: Reports No Symptoms; Denies Fever
Respiratory: Reports No Symptoms; Denies Hemoptysis, Trouble Breathing or Pleurisy
Cardiac: Reports No Symptoms; Denies Chest Pain, Diaphoresis or Palpitations
Abdomen/GI: Reports No Symptoms; Denies Abdominal Pain
Neuro: Reports No Symptoms; Denies Dizzy
Physical Exam
-
General: No Apparent Distress and Comfortable; Negative Respiratory Distress
HEENT: Moist Mucous Membranes; Negative Oxygen
Respiratory: Clear to Auscultation; Negative Wheezes or Crackles
Cardiac: Regular Rhythm and S1/S2; Negative Murmur or Rub
GI: Soft, Nontender, Nondistended and Normal Bowel Sounds
Musculoskeletal: No Cyanosis and No Edema
Neuro: Awake, Alert, Oriented, No Motor Deficits and Nonfocal/Grossly Intact
Psych: Calm and Intact Judgement/Insight
Data Reviewed
-
Diagnostic Radiology: Report Reviewed by me and Discussed with Physician
CT Scan: Image personally visualized and interpreted, Report Reviewed by me and Discussed with Physician
Ultrasound: Image personally visualized and interpreted, Report Reviewed by me and Discussed with Physician
Labs: Labs Reviewed by me and Discussed with Physician
Old Records: Reviewed
[2024-01-12 08:21] LABS: Hematocrit 42.1 % (39.0-52.0); Hemoglobin 15.7 g/dL (13.0-18.0); Mean Corp Hgb Conc. 37.3 g/dL (33.0-37.0); Mean Corpuscular Hgb 35.1 pg (27.0-31.0); Mean Corpuscular Volume 94.2 fL (80.0-94.0); Mean Platelet Volume 8.4 fL (7.4-10.4); Platelet Count 238 10^3/uL (130-400); Red Blood Cell Count 4.47 10^6/uL (4.70-6.10); Red Cell Dist. Width 11.9 % (11.5-14.5); White Blood Cell Count 10.2 10^3/uL (4.8-10.8)
[2024-01-12 09:06] LABS: Blood Urea Nitrogen 24 mg/dl (9-20); Calcium 9.5 mg/dl (8.4-10.2); Carbon Dioxide 23 mmol/L (22-30); Chloride 101 mmol/L (98-107); Estimated Creatinine Clearance 53 ml/min; Glucose 198 mg/dl (70-99); Potassium 4.9 mmol/L (3.5-5.1); Sodium 136 mmol/L (135-145); eGFR 53.07
[2024-01-12] MEDS: LIPITOR 20 MG PO (09:10)
[2024-01-12] MEDS: LOPRESSOR 100 MG PO (09:10)
[2024-01-12] MEDS: ELIQUIS 10 MG PO (09:10)
[2024-01-12] MEDS: GLUCOPHAGE PO ×2 (09:10→09:33)
[2024-01-12] MEDS: AMARYL PO ×2 (09:10→09:32)
[2024-01-12] MEDS: NOVOLOG FLEXPEN-LOW RESISTANCE 2 UNITS SC (09:11)
[2024-01-12] MEDS: ZYLOPRIM 100 MG PO (09:11)
[2024-01-12] MEDS: ZESTRIL 10 MG PO (09:11)
[2024-01-12 11:00] VITALS: BP 122/75
[2024-01-12 11:02] LABS: D-Dimer 0.55 ug/mlFEU (0.00-0.50)
[2024-01-12 11:52] LABS: Glucose - Point of Care 157 mg/dl (70-99)
[2024-01-12] MEDS: NOVOLOG FLEXPEN-LOW RESISTANCE 1 UNITS SC ×2 (12:08→17:13)
[2024-01-12 15:00] VITALS: BP 115/70
--- NOTE | 2024-01-12 15:07 | W.PN.PUL3 ---
Today's Communication / Plan
-
Continue with anticoagulation
Tobacco cessation
Echocardiogram per primary service
Follow-up with [facility]. Recommended follow-up in the short-term, within a month
Disposition efforts
We will sign off. Please call with questions
Assessment
-
Patient is a 73-year-old male with previous history of hypertension, diabetes presenting to ER with acute onset of left-sided chest discomfort. He was having some associated diaphoresis and radiation to left arm. His pain was aggravated by
cough and deep inspiration. On arrival to ER, he underwent CT showing mild thrombus formation in the distal left main pulmonary artery extending into segmental and subsegmental branches. He was hemodynamically stable in ER, there was no indication
to administer tPA. He is now started on IV heparin drip. Of note, he was positive for COVID 12/28/2023 and finished 5 days of Paxlovid. We are consulted for eval.
Acute L sided PE
L sided chest pain
Elevated trops, non [place] related
Recent COVID illness
Family history of VTE
Conditions present prior to admission
Hypertension
Hyperlipidemia
Type 2 diabetes
BPH s/p TURP
Emphysema
Former smoker
Plan
No oxygen was needed on admission, currently saturating >90% on RA
Prior history of lung disease is noted including emphysema
Follows with outpatient pulmonology at [place]
States he obtains yearly CT screening there
No prior PFTs for review
CXR/CT obtained indicating new L sided PE
Duplex negative
Small burden with elevated trops but otherwise hemodynamically stable
Agree that there is no indication for tPA, he is now on IV heparin
Other imaging reviewed
Transitioned to Eliquis
No prior echo for review
Consider updated study while inpatient, pending for today? Defer to primary srevice
Smoking history noted
Encourage continued smoking cessation
Daughter has history of VTE, currently following with hematology
May need to have workup as an outpatient
May have been provoked by recent episode of COVID however family predominance should likely be ruled out
Outpatient pulmonary FU at [facility] Dr Andrea Handy
Disposition efforts per primary service
We will sign off. Please call with questions
Diagnostic Data
Chest X-Ray:
CT Scan: CTA 01/10/24- There is mild thrombus formation in the distal left main pulmonary artery extending into segmental and subsegmental vessels of the left upper lobe, left lower lobe and lingula. The right ventricle is slightly larger than the
left with a RV/LV ratio greater than 1. It is 1.1.
There are no abnormal pleural or parenchymal pulmonary masses. There is no significant parenchymal airspace disease.There is no pleural effusion.There are no abnormal mediastinal masses.
There is no hilar lymphadenopathy.There is no mediastinal lymphadenopathy.There is no axillary lymphadenopathy.
The osseous structures show mild degenerative disease. No acute fractures are noted.
There is mild cystic change in lungs consistent with emphysematous disease. There are also findings consistent with prior benign granulomatous disease.
Duplex - No sonographic evidence for lower extremity venous thrombosis.
Echo:
PFT's:
Reports and relevant images were personally reviewed.
Total time spent on this consultation __51__ includes review of history, physical exam, medications, laboratory data, personal review of imaging, extensive review of outpatient records, discussion with care team and respiratory therapy.
Subjective Data
-
Date of Service:
Date of Service: January 12, 2024
Chief Complaint: Pulmonary Follow Up
Subjective:
Patient feels well, anxious for discharge. Denies chest pain, nausea, abdominal pain, pleurisy, lightheadedness. Ambulating without difficulty. Family members at bedside
Objective Data
Data Reviewed
Vital Signs / I&O / Oxygen:
Vital Signs
Temp Pulse Resp BP Pulse Ox
97.8 F 69 18 122/75 97
01/12/24 11:00 01/12/24 11:00 01/12/24 11:00 01/12/24 11:00 01/12/24 11:00
Intake and Output
01/11/24 01/12/24 01/13/24
06:59 06:59 06:59
Intake Total 1440 / 1440 600 / 600
Output Total 1400 / 1400 250 / 250
Balance 40 / 40 350 / 350
SaO2 97
Physical Exam
General: Comfortable
HEENT: Normocephalic, Anicteric and Moist Mucous Membranes
Cardiovascular: S1-S2 and Regular Rhythm
Respiratory: Clear, Wheeze (n), Crackles (n), Rhonchi (n) and Non-Labored Respirations
GI: Soft, Non Distended and Non Tender
Neurology: Awake, Alert and No Motor Deficits (Able to sit up without assistance)
Skin: Cyanosis (n), Rash (n) and Other (hyperpigmented skin)
Labs/Micro/Reports
Lab Data
01/12/24 07:26
01/12/24 07:26
Laboratory Results
01/11/24 01/11/24
16: 23:00
APTT 72.8 H Cancelled
--- NOTE | 2024-01-12 15:58 | CM ---
Patient seen at bedside. Patient completed IMM and signed form placed on chart. patient stated that he was anticipating discharge home with no needs. CM updated physician about cost of eliquis to patient, coupon provided earlier this admission. CM
will continue to follow for discharge planning needs.
Plan; home with no needs
[2024-01-12] MEDS: GLUCOPHAGE 850 MG PO ×2 (16:26→22:38)
[2024-01-12 16:44] LABS: Glucose - Point of Care 152 mg/dl (70-99)
[2024-01-12 18:10] LABS: Troponin I 0.265 ng/ml
[2024-01-12] MEDS: NSS 500 IV (18:35)
[2024-01-12 19:50] LABS: Hepatitis C Antibody Negative (Negative)
[2024-01-12 20:01] VITALS: BP 132/80
[2024-01-12] MEDS: NSS 1000 IV (20:32)
[2024-01-12] MEDS: COUMADIN 5 MG PO (20:34)
[2024-01-12] MEDS: LOVENOX 80 MG SC (20:35)
[2024-01-12 20:51] LABS: Glucose - Point of Care 199 mg/dl (70-99)
[2024-01-12] MEDS: FLOMAX 0.4 MG PO (22:38)
[2024-01-12 23:16] VITALS: BP 128/73
[2024-01-13 03:19] VITALS: BP 122/69
[2024-01-13 07:15] LABS: Glucose - Point of Care 210 mg/dl (70-99)
--- NOTE | 2024-01-13 07:20 | W.PN.HOSP.TC ---
Addendum entered and electronically signed by Gena Perez MD 01/13/24 14:55:
I personally performed a history and physical exam of the patient and discussed management with the resident. I reviewed the resident's note and agree with the documented findings and plan of care HPI/CC.
Patient anxious to go home
Denies any chest pain or shortness of breath
Likely provoked PE because of recent COVID. Patient cannot afford Eliquis
Kjpplaq-maosjj-loumi and Coumadin started
Patient has given Lovenox injections to his daughter in the past and therefore very familiar with this.
He is aware that he needs to continue Lovenox for 2 days of therapeutic INR and then stop.
Primary physician's office to be alerted by resident regarding Coumadin and INR monitoring
He also had urine retention. Long discussion with the patient regarding urine retention. He stopped going to urology office because he had to wait to see urologist for an hour last time. We discussed that he needs to follow-up with urology.
Increase the dose of Flomax discussed with the patient.
He is also aware that he needs to follow-up with hematology and pulmonary regarding pulmonary nodules and also PE.
Glimepiride dose increased.
Total discharge time 35 min
Original Note:
Today's Communication/Plan
-
Continue Lovenox bridging to Coumadin
Creatinine trending down
Increase tamsulosin dose
Discharge planning
Assessment / Plan
Assessment / Plan
Assessment: 73-year-old male with past medical history of essential hypertension, hyperlipidemia, and type 2 diabetes, who presented to ED 0n 01/09 with new onset of left-sided chest discomfort/pain associated with diaphoresis, radiation to left
arm and aggravated by cough/deep inspiration.
Impression:
Acute L sided PE
Chest pain resolved, pt not on O2
Elevated trops
Peaked at 0.83, non [place] related
Recent COVID illness
Family history of VTE (portal vein thrombosis, daughter)
Conditions present prior to admission:
Hypertension
Hyperlipidemia
Type 2 diabetes
BPH s/p TURP
Emphysema
Former smoker
1. Acute Left sided PE
-Likely provoked by recent COVID infection 12/27 s/p 5 days paxlovid, No travel history/no malignancy history.
-Chest pain secondary to the above resolved.
-Positive Family Hx of VTE.
-proBNP 107.
-Lower extremity venous Doppler negative.
-Pulmonary team appreciated.
-Echocardiography 01/11 with preserved EF, mild to moderate aortic root dialation-Full report below.
-Started Lovenox/Coumadin bridge, Eliquis discontinued due to cost.
-Pt aple to give himself Lovenox.
-INR 1.09, PT 13.9.
-Educated on consistent diet for stable INR, daughter aware.
-Discussed with Pts PCP; Follow up with PCP and [facility] on discharge.
2. Elevated troponin
-Non-ischemic Myocardial injury,likely due to RV strain.
-Peaked at 0.83.
3. Urinary Retention
-801 ml of urine on bladder scan.
-Increase Flomax to 0.8 mg daily.
-F/u with urology outpatient.
4. Acte kidney injury
-Creatinine up 1.4, baseline 1.2 s/p CT angio 01/09; likely due to contrast-induced nephropathy.
-Trending down s/p 1L NSS. Encouraged to increase fluid intake.
5. Essential hypertension
-Hold blood pressure medication unless systolic blood pressure above 160
-Can resume lisinopril first or metoprolol
6. Hyperlipidemia
-Continue home simvastatin
7. Ful-yyxdseo-ckxwhsmmp DM
-HbA1c 7.2.
-Poorly controlled on glimepiride, and metformin.
-Increased glimepiride to 2 mg daily, continue Metformin 850 mg TID.
DVT PPX - heparin drip
Full code

Data:
CT chest angio 01/10/2024:
Multiple left-sided pulmonary emboli. Moderate clot burden. Findings suggesting mild right heart strain.
No evidence of aortic dissection.
Mild emphysematous disease. Prior benign granulomatous disease.
Echo 01/12/2024:
Normal left ventricular size, wall thickness and systolic function. No regional wall motion abnormalities are seen. LV ejection fraction is 55-60% by Lion's
method of discs. Normal diastolic function. Mild to moderate aortic root dilatation. Sinuses of Valsalva (4.5 cm) and ascending aorta (4.0 cm) dilatation. The aortic arch is normal in caliber.
Anticipated Discharge: Today
Subjective/Interval History
-
Date of Service: January 13, 2024
Objective Data
-
Labs:
Laboratory Results
01/13/24
06:48
WBC Pending
Hgb Pending
Hct Pending
Plt Count Pending
PT Pending
INR Pending
Sodium Pending
Potassium Pending
Chloride Pending
Carbon Dioxide Pending
BUN Pending
Creatinine Pending
Glucose Pending
Calcium Pending
Vital Signs:
Vital Signs
Temp Pulse Resp BP Pulse Ox
98 F 81 16 122/69 95
01/13/24 03:19 01/13/24 03:19 01/13/24 03:19 01/13/24 03:19 01/13/24 03:19
I&O
01/12/24 01/13/24 01/14/24
06:59 06:59 06:59
Intake Total 600 / 600 1860 / 1860
Output Total 250 / 250 475 / 475
Balance 350 / 350 1385 / 1385
Review of Systems
-
History Source: Patient
All other systems: Not reviewed unless documented
Constitutional: Reports No Symptoms; Denies Fever
Respiratory: Reports No Symptoms; Denies Hemoptysis, Trouble Breathing or Pleurisy
Cardiac: Reports No Symptoms; Denies Chest Pain, Diaphoresis or Palpitations
Abdomen/GI: Reports No Symptoms; Denies Abdominal Pain
Genitourinary: Reports No Symptoms
Neuro: Reports No Symptoms; Denies Dizzy
Physical Exam
-
General: No Apparent Distress and Comfortable; Negative Respiratory Distress
HEENT: Moist Mucous Membranes; Negative Oxygen
Respiratory: Clear to Auscultation; Negative Wheezes or Crackles
Cardiac: Regular Rhythm and S1/S2; Negative Murmur or Rub
GI: Soft, Nontender, Nondistended and Normal Bowel Sounds
Musculoskeletal: No Cyanosis and No Edema
Skin: Warm
Neuro: Awake, Alert, Oriented, No Motor Deficits and Nonfocal/Grossly Intact
Psych: Calm and Intact Judgement/Insight
Data Reviewed
-
Diagnostic Radiology: Report Reviewed by me and Discussed with Physician
CT Scan: Image personally visualized and interpreted, Report Reviewed by me and Discussed with Physician
Ultrasound: Image personally visualized and interpreted, Report Reviewed by me and Discussed with Physician
Labs: Labs Reviewed by me and Discussed with Physician
Old Records: Reviewed
[2024-01-13 07:35] LABS: Hematocrit 43.8 % (39.0-52.0); Hemoglobin 16.1 g/dL (13.0-18.0); Mean Corp Hgb Conc. 36.8 g/dL (33.0-37.0); Mean Corpuscular Hgb 34.5 pg (27.0-31.0); Mean Corpuscular Volume 93.8 fL (80.0-94.0); Mean Platelet Volume 8.6 fL (7.4-10.4); Platelet Count 260 10^3/uL (130-400); Red Blood Cell Count 4.67 10^6/uL (4.70-6.10); Red Cell Dist. Width 12.1 % (11.5-14.5); White Blood Cell Count 9.4 10^3/uL (4.8-10.8)
--- NOTE | 2024-01-13 07:36 | PTCARENOTE ---
~0610: Pt voiding during night into urinal. This RN bladder scanned pt for 880 mL. Pt reports feeling the urge to void and voided in bathroom.
~0620: Pt bladder scanned by this RN for 801 mL after pt voided in bathroom. Pt due to be straight cathed per protocol. This RN entered room with straight cath kit and pt said 'No, absolutely not. I've had catheters before and had bad
experiences. You can fight me on this but I'm not doing this'. Pt educated on the need to empty his bladder to prevent infection and bladder complications; pt is still refusing to be catheterized. Will pass along to day shift and continue to
bladder scan per protocol.
[2024-01-13 07:39] LABS: INR 1.09; PT 13.9 Sec (11.4-14.6)
[2024-01-13 07:52] VITALS: BP 116/80
[2024-01-13 07:54] LABS: Blood Urea Nitrogen 24 mg/dl (9-20); Calcium 9.3 mg/dl (8.4-10.2); Carbon Dioxide 22 mmol/L (22-30); Chloride 105 mmol/L (98-107); Estimated Creatinine Clearance 57 ml/min; Glucose 171 mg/dl (70-99); Potassium 4.9 mmol/L (3.5-5.1); Sodium 138 mmol/L (135-145); eGFR 58.01
[2024-01-13] MEDS: NOVOLOG FLEXPEN-LOW RESISTANCE 2 UNITS SC (08:29)
[2024-01-13] MEDS: ZYLOPRIM 100 MG PO (08:31)
[2024-01-13] MEDS: LOPRESSOR 100 MG PO (08:31)
[2024-01-13] MEDS: GLUCOPHAGE 850 MG PO (08:31)
[2024-01-13] MEDS: AMARYL 2 MG PO (08:31)
[2024-01-13] MEDS: LIPITOR 20 MG PO (08:32)
[2024-01-13] MEDS: LOVENOX 80 MG SC (08:32)
[2024-01-13] MEDS: ZESTRIL 10 MG PO (08:32)
[2024-01-13 09:07] LABS: Glycohemoglobin (HgbA1c) 7.2 % (4.0-5.6)
--- NOTE | 2024-01-13 10:36 | PN.CDI ---
CDI
- -
CDI:
Physician Documentation Request
Admit Date: 01/10/24 08:49
Dear Doctor Pascual,
Patient admitted with pulmonary embolism.
01/11 Hospitalist PN: 'Troponin elevation -PE related, Nonischemic cardiomyopathy related'
Laboratory Tests
01/10/24 01/11/24 01/12/24
07:56 05:22 17:36
Troponin I 0.214 H* D 0.830 H* 0.265 H*
Please clarify the following regarding the documented troponin elevation:
Non-ischemic myocardial injury
Lab abnormality only
Other
Use of terms such as suspected, likely, concern for, or probable (associated with a specific diagnosis that is being evaluated, monitored, or treated as if it exists) are acceptable and can be coded in the inpatient setting, when documented at the
time of discharge.
Thank you,
Dana Vail RN, BSN
CDI Specialist
Available via [facility] text
Please use your independent medical judgment in providing your response.
[2024-01-13 11:32] LABS: Glucose - Point of Care 190 mg/dl (70-99)
[2024-01-13 11:34] VITALS: BP 103/73
[2024-01-13] MEDS: NOVOLOG FLEXPEN-LOW RESISTANCE 1 UNITS SC (11:52)
--- NOTE | 2024-01-13 12:51 | W.DCSUMMARY ---
Discharge Summary
Discharge Data
Date of Admission: 01/10/24
Date of Discharge: 01/13/24
-
Pending Results: No
Hospital Course
Discharging Physician : Gena Perez MD, Franco Garner MD
Disposition : Home
Primary care physician : Char Lugo MD
Principal Discharge diagnosis : Acute left-sided pulmonary embolism
Chronic Discharge diagnosis : Essential hypertension, hyperlipidemia, enlarged prostate, history of gout, type II DM, psoriasis, emphysema, thoracic aortic aneurysm, family history of VTE.
Hospital Course : 73-year-old male with past medical history of emphysema, thoracic aneurysm essential hypertension, hyperlipidemia, and type 2 diabetes, who presented to ED 0n 01/09 with new onset of left-sided chest discomfort/pain associated
with diaphoresis, radiation to left arm and aggravated by cough/deep inspiration. He reported recent COVID infection 2 weeks [employer]. While in the ED, patient was started on heparin, his labs showed elevated troponin I of 0.214 peaked at 0.830, and
serum glucose 228. He was further evaluated with bilateral lower extremity vascular ultrasound which showed no evidence of DVT however his CT chest angiography was remarkable for multiple left-sided pulmonary emboli with moderate clot burden.
Patient was started on Eliquis and admitted for further evaluation and management.
While in the hospital, patient was seen in consultation with pulmonology and was further evaluated with an echocardiogram which shows preserved left ventricular ejection fraction with mild to moderate aortic root dilation. His labs remained stable
except for HbA1c of 7.2, and patient remained afebrile. Patient was also found to have severe urinary retention with a PVR of 8.1 ml. His glimepiride was increased from 1 mg tablet once daily to 2 mg tablet once daily, and his tamsulosin was
increased from 0.4 mg daily to 0.8 mg daily. Due to cost, patient was not able to continue Eliquis and elected to start Lovenox with bridge to Coumadin. Patient was started on 80 mg Lovenox twice daily and 5 mg Coumadin once daily. The benefits
and potential side effects of these medications were discussed with the patient and he was advised to follow-up with PCP within 1 week to complete the bridge. Patient's PCP was called and plan for Coumadin bridge discussed. Patient's daughter who
is also on anticoagulation due to VTE elected to connect patient to her accelerator systems director for further pulm follow-up and Coumadin clinic moving forward. He states that he has given Lovenox to his daughter previously and is able to give it himself.
Patient has been evaluated and hemodynamically stable for discharge home. Patient is also instructed to follow-up with urology outpatient for further management of his urinary retention.
Important imaging findings :
CT chest angio 01/10/2024:
Multiple left-sided pulmonary emboli. Moderate clot burden. Findings suggesting mild right heart strain.
No evidence of aortic dissection.
Mild emphysematous disease. Prior benign granulomatous disease.
Peripheral vascular ultrasound 01/10/2024:
No sonographic evidence for lower extremity venous thrombosis.
Echo 01/12/2024:
Normal left ventricular size, wall thickness and systolic function. No regional wall motion abnormalities are seen. LV ejection fraction is 55-60% by Lion's
method of discs. Normal diastolic function. Mild to moderate aortic root dilatation. Sinuses of Valsalva (4.5 cm) and ascending aorta (4.0 cm) dilatation. The aortic arch is normal in caliber.
Discharge Plan
-
Patient Disposition: Home (Routine Discharge)
Discharge Diagnosis/Procedures: Acute left sided PE, essential hypertension, non-insulin dependent DM type II, emphysema, psoriasis
Condition: Good
Diet: Diabetic, Carb Controlled
Activity: No restrictions
Additional Activity: Extra precautions for skin injuries given Rx with Coumadin
Driving Restrictions: As prior to admission
Bathing Restrictions: None
Blood Work: Follow up with hematology outpatient for INR checks 3-4 days
Referrals:
Char Lugo MD [Family Provider] - in less than 1 week
Daniel Hassan MD [Active] - in one to two weeks
Additional Discharge Medication Instructions: Inject Lovenox 80 mg under the skin (preferably abdominal region) twice daily starting tonight
Take glimepiride 2 mg tablet by mouth once daily
Take warfarin 5 mg tablet once daily at night
Take 2 capsules of 0.4 mg tamsulosin once daily at night
Prescriptions:
New
enoxaparin [Lovenox] 80 mg/0.8 mL syringe
80 mg SC Q12H Qty: 8 0RF
Rx Instructions:
Inject subcutaneously (abdomen preferred) once, twice daily
glimepiride 2 mg Tablet
2 mg PO DAILY Qty: 30 1RF
Rx Instructions:
Take 2 mg of glimepiride by mouth once daily
tamsulosin 0.4 mg Capsule
0.8 mg PO HS Qty: 90 0RF
warfarin 5 mg tablet
5 mg PO DAILY Qty: 90 0RF
Rx Instructions:
Take 1 tablet once daily at night
Continued
metoprolol tartrate 100 MG tablet
100 mg PO DAILY
lisinopril 20 MG tablet
10 mg PO DAILY
metformin 850 MG tablet
850 mg PO TID
allopurinol 100 MG tablet
100 mg PO DAILY
simvastatin 40 MG tablet
40 mg PO Daily
acetaminophen 325 MG tablet
650 mg PO Q4HPRN PRN (Reason: mild pain/MOCTEZUMA/temp> 100.4F) 0RF
Discontinued
glimepiride 1 mg Tablet
1 mg PO DAILY
tamsulosin 0.4 MG capsule
0.4 mg PO HS
Discharge Orders:
Discharge Patient (As Directed); Ordered 01/13/24
Ordered By: Franco Garner
Discharge Date and Time
Discharge Date/Time: 01/13/24 14:35
Print Language: BULGARIAN
--- NOTE | 2024-01-13 13:09 | CM ---
Patient seen at bedside. Patient states he will go home on Lovenox and Coumadin. Patient stated that he has no concerns at this time and his daughter's physician will assist. Patient stated he has a ride when family is coming to take him home. CM
will continue to follow for discharge planning needs.
Plan; home with no needs at this time
--- NOTE | 2024-01-13 14:16 | PTCARENOTE ---
Rn flow stacker- Called to Lydia at [facility] to confirm that scripts recieved. As Per Lydia they do not have lovenox 80 mg until tomorrow. Called to [facility] pharmacy in [place], hwo confirmed they have lovenox. Fausto texted Josef, who
states that he would re-transmit script.
--- NOTE | 2024-01-13 14:35 | PTCARENOTE ---
Patient was able to demonstrate lovenox injection this am, gave to himself with good technique and verbal instruction from nurse. Verbalized understanding and said he 'had to give it to his daughter before' . Denied any further questions.
== END 2024-01-13 14:35 | disposition home or self-care (01) | DRG 176 ==
LOC: 4 WEST ACU 08:49
PROVIDERS: Emergency Medicine; Student in an Organized Health Care Education/Training Program; ADMITTING PHYSICIAN Hospitalist; ATTENDING PHYSICIAN Hospitalist; CONSULT PHYSICIAN Internal Medicine; EMERGENCY PHYSICIAN Emergency Medicine; FAMILY PHYSICIAN Family Medicine
DX: I26.99 Other pulmonary embolism without acute cor pulmonale (principal); I5A Non-ischemic myocardial injury (non-traumatic); Z87.891 Personal history of nicotine dependence
CPT/HCPCS: 71275; 80048; 80053; 82962; 83036; 83880; 84484; 85025; 85027; 85379; 85610; 85730; 86803; 93005; 93306; 93970; 96365; 96366; 99291; Q9967

== ENCOUNTER 2025-03-27 14:42 | Inpatient (IN) | payer MEDICARE, OTHER, SELFPAY ==
[2025-03-27] VITALS (9 sets, daily range): BP systolic 102–129; BP diastolic 75–97; BMI 23.4
--- NOTE | 2025-03-27 11:31 | ED.GENMED ---
History of Present Illness
General
Chief Complaint: Dizziness
Source: patient
Time Seen by Provider: 03/27/25 11:16
History of Present Illness
History of Present Illness:
74-year-old male presents emergency room complaining of passing out at home. Patient was at his baseline health this morning when he woke up. Made the bed but then began to feel shortness of breath and dizzy. He rested for a minute and then went
about his day including making breakfast and doing some errands around the house. He then again had an episode of feeling short of breath followed by 'blanking out'. He fell onto his left side. He has some mild left shoulder pain. Patient noted
shortness of breath while walking down the hallway to his room here in the emergency room. He is not short breath at rest. Does not really having any chest discomfort at this time. Review of the patient's chart reveals that he has a history of a
pulmonary embolism. He took oral anticoagulation for 6 months at which point was discontinued. He has had a couple urologic procedures since that time with the most recent being about 6 weeks ago.
Past History
Past History
ED Past Medical History: HTN, Hypercholesterolemia, NIDDM and Other (urinary retention)
ED Past Surgical History: Urological (TURP) and Other (prostate sx)
Social History
Tobacco: Former smoker
Alcohol: None
Drug: None
Personal:
Living: with family
Employment: Retired
Family History
Family History: Other ([place])
Phy Exam
Physical Exam
Physical Exam:
General: Awake, Alert, Oriented X3. No acute distress.
Vitals: Mildly tachycardic on the monitor
Head: Atraumatic
Eyes: Pupils equal, EOMI
Throat: Airway intact, no exudates
Neck: Trachea midline
Lungs: Clear and equal b/l
Heart: Regular rate, no murmurs
Abd: Soft, Nontender, No pulsatile mass
Neuro: Nonfocal
Skin: Warm, dry, no rash
Extremities: pulses equal b/l, no edema
Course
Orders/Labs/Results
Orders:
Orders
03/27/25 11:26
Electrocardiogram (*1) Stat
Reason for Study: Other
Other Reason for Exam: chest pain
CT Chest PE Study Urgent
Comment:
Reason For Exam: syncope, sob, hx of pe
Cardiac Monitoring- Treatment ONCE
EKG- Treatment ONCE
0.9% Sodium Chloride 500 ml [Nss] 500 ml IV BOLUS
03/27/25 11:29
Basic Metabolic Panel Urgent
Complete Blood Count/With Diff Urgent
Troponin I Urgent
03/27/25 13:19
PT/INR [Prothrombin Time] Urgent
PTT Urgent
03/27/25 13:24
Heparin 6,700 units IV NOW STA
Nursing to Place Non Medication Order As Directed
Physician Order: PTT 6 hours after initial start of Heparin infusion
Above order entered?: Yes
03/27/25 13:30
Heparin [id number] Units/250 ml 25,000 units in 250 ml IV PER PROTOCOL
Weight to be used for heparin protocol in kilograms (kg):: 83.9
Protocol:: DVT/PE
PTT Goal Range to be used:: PTT 73 to 111 seconds
Order type:: Initial
INITIAL Infusion Dose (UNITS/KG/hr) & then follow protocol:: 18 units/kg/hr
Infusion Dose in UNITS/hr & then follow protocol (UNITS/hr):: 1,500
INFUSION RATE in mL/hr & then follow protocol (mL/hr):: 15
For DVT/PE algorithm, re-bolus for low PTT?: Yes
PTT less than or equal to 64 seconds:: Re-bolus 80 units/kg (max 10,000units). Increase by 300 units/hr
(+ 3mL/hr)
PTT 64.1 to 72.9 seconds:: Re-bolus 40 units/kg (max 5,000 units). Increase by 200 units/hr
(+ 2mL/hr)
PTT 73 to 111 seconds:: Target Range. No change in rate.
PTT 111.1 to 130.9 seconds:: Decrease rate by 200 units/hr (- 2 mL/hr)
PTT 131 to 199.9 seconds:: HOLD for 1 hr. Then decrease by 300 units/hr (- 3mL/hr)
PTT greater than or equal to 200 seconds:: HOLD for 2 hrs & Notify Provider. Then decrease by 300 units/hr
(- 3mL/hr)
Lab follow-up:: Each change, PTT q6h until 2 consecutive are therapeutic. Then
PTT daily.
03/27/25 13:31
Heparin 6,700 units IV PRN PRN
03/27/25 13:32
Heparin 3,400 units IV PRN PRN
03/27/25 14:03
Lingo Cleaner Consult Urgent
Consulting Provider: Ezequiel Yang
Was physician already notified: Yes
Reason for consult: PE
03/27/25 14:[address] Non Medication Order As Directed
Physician Order: please complete medication reconciliation
Above order entered?: Yes
03/27/25 14:18
Admit/Transfer Patient As Directed
Co-Sign Provider:
Level of Care: Inpatient admission
Assign to:: IMU- Intermediate Care
Physician / Group: Lali
Diagnosis: acute PE
Reason for Hospitalization: Hyperlipidemia
History of multiple urological surgeries, last one 6 weeks ago
Psoriasis
Emphysema
Gout
Thoracic aortic aneurysm
Expected length of stay greater than two midnights?: Yes
ELOS- Estimated Length of Stay in days: 4
I certify the patient meets the requirements for IP care: Yes
PRN Pain Medication Management As Directed
May give lesser potent ordered pain med per pt: Yes
preference::
Protocol:: Medication orders for pain may be administered in a
manner that supports deferring to patient preference
when the pt is:
- Requesting an ordered lesser potent pain medication.
Least to most potent pain medications are defined
as: acetaminophen < NSAID < tramadol < opioids
(morphine, oxycodone, hydromorphone).
- Requesting a lesser dose of the same medication IF
ORDERED.
- Requesting a less intrusive route of administration
if both routes are prescribed by the provider (PO <
IV).
03/27/25 14:20
Code Status As Directed
Resuscitation Status: Full Code
03/27/25 14:31
PRN Pain Medication Management As Directed
May give lesser potent ordered pain med per pt: Yes
preference::
Protocol:: Medication orders for pain may be administered in a
manner that supports deferring to patient preference
when the pt is:
- Requesting an ordered lesser potent pain medication.
Least to most potent pain medications are defined
as: acetaminophen < NSAID < tramadol < opioids
(morphine, oxycodone, hydromorphone).
- Requesting a lesser dose of the same medication IF
ORDERED.
- Requesting a less intrusive route of administration
if both routes are prescribed by the provider (PO <
IV).
03/27/25 19:45
PTT Urgent
Abnormal Lab Results
03/27/25
11:29
RBC 4.52 L 10^6/uL
(4.70-6.10)
MCH 33.6 H pg
(27.0-31.0)
Absolute Neuts (auto) 8.0 H 10^3/uL
(1.4-6.5)
Neutrophils % 79.4 H %
(42.2-75.2)
Lymphocytes % 11.5 L %
(20.5-51.1)
Sodium 133 L mmol/L
(135-145)
Carbon Dioxide 17 L mmol/L
(22-30)
BUN 25 H mg/dl
(9-20)
Glucose 275 H mg/dl
(70-99)
Troponin I 0.058 H* ng/ml
03/27/25 11:29
03/27/25 11:29
Vital Signs
Initial and Last Documented VS:
Initial Vital Signs
Temp Pulse Resp BP Pulse Ox
98.8 F 105 18 129/83 96
03/27/25 10:55 03/27/25 10:55 03/27/25 10:55 03/27/25 10:55 03/27/25 10:55
Last Documented Vital Signs
Temp Pulse Resp BP Pulse Ox
98.8 F 99 14 126/87 94
03/27/25 10:55 03/27/25 14:30 03/27/25 14:30 03/27/25 14:00 03/27/25 14:30
MDM/Problems Addressed
Differential Diagnosis Includes:
PE, dysrhythmia, dehydration, vasovagal syncope
MDM/Problems Addressed:
Patient presents after passing out at home. He felt a prodrome of shortness of breath and dizziness. He has a very mild tachycardia on the monitor. Given his history of PE I am concerned that he may have had another pulmonary embolism. Will
evaluate for this with a CT angiogram. Will observe him on the monitor and obtain labs. He has left shoulder pain with benign exam. Likely this will be visualized on the CAT scan. Will obtain x-rays if necessary.
CT shows the presence of bilateral pulmonary emboli with a significant clot burden. There are some indications of right heart strain. His troponin is elevated. PERT alert called as soon as I was informed of the patient's preliminary CT report via
[facility] text. Heparin ordered immediately. Dr. Yang came and evaluated the patient here in the emergency room. Patient not a candidate for intervention at this point as he is quite stable. We will hospitalize on IV anticoagulation.
Chronic conditions affecting care: DM and HTN
Acute Exacerbation and/or Progression of Chronic Illness:
GERD, BPH
*Radiology
Radiology exam reviewed: radiology read reviewed
*Pulse Oximetry
SaO2: 97
Oxygen Mode of Delivery: Room air
Patient hypoxic: no
*EKG
Interpreted by ED Provider?: Yes
Heart Rate: 101
Rate: tachycardiac
Rhythm: sinus tachycardia
[place]: normal axis
Interval: normal interval
QRS Pattern: normal QRS
Ischemia: no ischemia
*B[employer] Twirler Interpretation
Rate: tachycardiac
Interpretation: abnormal
Heart Rate: 101
Rhythm: sinus tachycardia
*Critical Care Note
Total Time (30-74mins, 75-104mins- exclusive of procedures): 38 min
comment:
Critical care statement: A total of 38 minutes of critical care time was provided for this patient. This includes management of unstable vital signs, evaluation of the patient at bedside, reviewing the patient's pertinent medical records, discussion
with consultants, review of old EKGs and review of pertinent medical records. This time with separate from time utilized to perform the aforementioned documented procedures
Data Reviewed
Review of Other/Old Records Reveals: Progress Notes (Pulmonary consult from December 2023) and Discharge Summary (Admission for pulmonary embolism from December 2023)
Patient Management
Social determinants of health affecting care: Strong social support
ED Attending Note
-
Portions of this chart may have been created with voice recognition software.� Occasional wrong word or��sound alike� substitutions may have occurred due to the inherent limitations of voice recognition software.
Discharge Plan
Departure
Patient Disposition: Admit
Date of Disposition: 03/27/25
Time of Disposition: 13:55
Admit to: IMU
Presentation/result/management discussed w/ accepting MD/DO: Hospitalist
Condition: Serious
Discharge Problem:
Pulmonary embolism, bilateral
Interventions
Interventions:
*Risk Screen - Suicide Last Done: 03/27/25 10:55
*General Assessment Last Done: 03/27/25 10:55
*Neglect/Abuse Screening Last Done: 03/27/25 11:06
*ED- Fall Risk Assessment Last Done: 03/27/25 11:06
*ED COVID-19 Vaccine History Last Done: 03/27/25 11:06
ED- Neurological Assessment Last Done: 03/27/25 11:18
ED- Cardiac Assessment Last Done: 03/27/25 11:18
ED Swallowing Screen Last Done: 03/27/25 13:51
[2025-03-27] MEDS: NSS 500 IV (11:33)
[2025-03-27 11:44] LABS: Hematocrit 41.1 % (39.0-52.0); Hemoglobin 15.2 g/dL (13.0-18.0); Mean Corp Hgb Conc. 37.0 g/dL (33.0-37.0); Mean Corpuscular Volume 90.9 fL (80.0-94.0); Nucleated Red Blood Cells % 0 % (-); Platelet Count 185 10^3/uL (130-400); Red Cell Dist. Width 12.2 % (11.5-14.5)
[2025-03-27 11:57] LABS: Blood Urea Nitrogen 25 mg/dl (9-20); Calcium 9.4 mg/dl (8.4-10.2); Carbon Dioxide 17 mmol/L (22-30); Chloride 105 mmol/L (98-107); Glucose 275 mg/dl (70-99); Potassium 4.8 mmol/L (3.5-5.1); Sodium 133 mmol/L (135-145); eGFR 57.65
[2025-03-27 12:29] LABS: Troponin I 0.058 ng/ml
[2025-03-27 13:38] LABS: INR 0.95; PT 13.0 Sec (11.4-14.6)
[2025-03-27 13:39] LABS: APTT 27.0 Sec (23.4-35.0)
[2025-03-27] MEDS: HEPARIN 6700 UNITS IV (13:43)
[2025-03-27] MEDS: HEPARIN 25000 UNITS/250 ML IV (13:43)
--- NOTE | 2025-03-27 13:49 | HPS.HSE ---
Family Physician
-
Family Physician: Char Lugo
Chief Complaint
-
Syncope
History of Present Illness
74 y/o M with PMHx:
PE December 2023
Essential hypertension
Type 2 diabetes mellitus
Hyperlipidemia
History of multiple urological surgeries, last one 6 weeks ago
Psoriasis
Emphysema
Gout
Thoracic aortic aneurysm
who p/w CC syncopal episode. Patient woke up this morning and felt somewhat 'off.' He states that he he has not felt in his usual state of health for the last couple of days. He was experiencing lightheadedness, shortness of breath, and felt
'cool and clammy.'. He had some breakfast and some coffee. He stated that he went to empty the dehumidifier reservoir which worsened his symptoms. He then suddenly found himself on the floor noting he had passed out. He was taken to the ER.
Denies chest pain or any other acute symptoms.
Medical History
Past Medical History
Past Medical History: Reports Other (as per HPI)
Past Surgical History: Reports Urological (pt states prostate surgery and urethral surgery approximately 6 weeks ago)
Social History
Tobacco: Non-smoker
Alcohol: None
Drug: None
Family History
Family History: Not pertinent
Allergies / Home Medications
Allergies reflects when Allergies were last updated in [facility].
Home Medications with original date entered in [facility]
Allergy/Medication List:
Allergies
Allergy/AdvReac Type Severity Reaction Status Date / Time
No Known Allergies Allergy Verified 03/27/25 10:55
Home Medications
Med rec pending:
allopurinol 100 mg tablet 100 mg PO DAILY Gout 06/24/18
lisinopril 20 mg tablet 10 mg PO DAILY Blood Pressure 06/24/18
metformin 850 mg tablet 850 mg PO TID Diabetes 06/24/18
metoprolol tartrate 100 mg tablet 100 mg PO DAILY Blood Pressure 06/24/18
simvastatin 40 mg tablet 40 mg PO Daily High Cholesterol 10/30/18
acetaminophen 325 mg tablet 650 mg (2 x 325 mg) PO Q4HPRN PRN mild pain/MOCTEZUMA/temp> 100.4F 11/18/18
glimepiride 2 mg tablet 2 mg PO DAILY Diabetes #30 tabs 01/13/24
If medication reconciliation has not been performed, why?: Other
If Other, explain: urgent ICU admission for acute PE with RV strain
Review of Systems
-
History Source: Patient
A 12 point ROS was completed and negative except as noted: Yes
Physical Exam
Vital Signs
Vital Signs
Temp Pulse Resp BP Pulse Ox
98.8 F 101 18 119/87 97
03/27/25 10:55 03/27/25 13:15 03/27/25 13:15 03/27/25 13:00 03/27/25 13:15
Physical Exam
General: Other (.)
Laboratory Results
-
03/27/25 11:29
03/27/25 11:29
Laboratory Results
PT 13.0 Sec (11.4-14.6) 03/27/25 13:19
INR 0.95 03/27/25 13:19
APTT 27.0 Sec (23.4-35.0) 03/27/25 13:19
Troponin I 0.058 ng/ml H* 03/27/25 11:29
Impression/Plan
-
Gen: NAD, AAOx3.
Eyes: EOMI, PERRLA, no scleral icterus.
Neck: supple.
CV: Tachycardic, regular rhythm, +S1/S2, no m/r/g.
Resp: CTAB anteriorly, no rales, wheezes, or rhonchi.
Abd: +BS, soft, NT, ND
Skin: No rashes.
Neuro: CN 2-12 intact, non-focal.
Psych: Normal mood and affect.
CTA chest: Positive for acute pulmonary thromboembolus involving the bilateral main, lobar, and segmental branches. Moderate to large clot burden. Right heart strain is suspected.
Acute PE:
-CTA chest above
-with suspected RV strain based on CTA chest
-cont Heparin gtt
-PERT alert activated
-admit to ICU
-pt to have bedside echo by Dr. Yang, made need formal echo today (if not today will order for tomorrow)
-currently saturating well on RA
-recent surgery so likely provoked PE but regardless, patient will require lifelong anticoagulation as he has had a pulmonary embolism approximately 14 months ago
Essential HTN:
-hold all home antihypertensives at this time
DM2:
-SSI/accuchecks
-check a1c
-diabetic diet
Other problems:
Hyperlipidemia
History of multiple urological surgeries, last one 6 weeks ago
Psoriasis
Emphysema, not in acute exac, saturating well on RA
Gout: cont allopurinol
Thoracic aortic aneurysm
Total critical care time spent = 52 min
--- NOTE | 2025-03-27 14:33 | W.PN.UPDATE ---
Update Note
Progress Note Update
Patient reevaluated with principal developer at bedside. Bedside echo does not show RV strain. For this reason the patient is being downgraded to IMU. Formal echocardiogram can be done tomorrow. No indication to involve interventional radiology at this
moment.
--- NOTE | 2025-03-27 14:45 | CON.INTV ---
Consultation
Consultation Request
Date/Time Consultation Requested: 03/27/2025 - 1329
Date/Time Consultation Performed: 03/27/2025 - 1339
Requesting Provider: Dr. Escalera
Performing Provider: Dr. Yang
Reason for Consultation: Acute PE/PERT Alert
Medical History
-
Chief Complaint: Passed out
History of Present Illness:
74-year-old M with PMHx of left-sided PE (December 2023), former tobacco smoker, emphysema, psoriasis on Skyrizi, DM type II, HTN, gout, urethral stricture s/p buccal mucosa urethroplasty (November 2024), and BPH s/p multiple TURP who presents with
dizziness/lightheadedness. He had an episode of cold sweats this AM, and later this AM he passed out and woke up on the floor. He now has left sided shoulder pain from the fall. Because of how he looked, he came to the ER. He was afebrile in the
ER with pulse rate 105, RR: 18, BP 129/83 and SpO2 96% on room air. Labs pertinent for Na 133, sHCO3 17, troponin 0.058, and CT chest was positive for bilateral pulmonary embolism with moderate/large clot burden and suspected RV strain. PERT alert
called. [employer] service consulted for further recs.
When I saw the pt, he was resting in bed on room air and breathing comfortably. He says he has been feeling SOB since this AM as well as lightheaded; he felt fatigued yesterday. He now feels well. He is currently on a heparin infusion. HR 103,
SpO2 97% with BP 125/88. Of note, he says he is UTD with his colonoscopy (last done 2years ago - found polyp and was told anything additional). He denies any recent long car trips, plane rides or a family Hx of clots. He denies a Hx of DVT.
I checked bedside PocUS: A-line predominant lung roach bilaterally, 34% IVC collapsibility, mild RV enlargement with no D sign. Lower extremity duplex checked and there was abnormal compressibility of the RLE veins involving right common femoral
vein and popliteal vein, suspicious for DVT.
PMHx: left-sided PE (01/10/2024), emphysema, former tobacco smoker (quit ~30 years ago), psoriasis on Skyrizi, DM type II, HTN, gout, urethral stricture, BPH with Hx of chronic mena (November - January 2025)
PSHx: Cataract/lens implants (2017), TURP (2018 + January 2025), buccal mucosa urethroplasty
Past Medical History
Past Medical History: Other (Above as per HPI)
Past Surgical History: Other (Above as per HPI)
Social History
Tobacco: Former Smoker (Quit ~ 30 years ago; smoked 1.5 PPD x 25 years)
Alcohol: None
Drug: None
Personal:
Living: With Family ( = Nina)
Family History
Family History: Cancer (Sister: Liver cancer) and Other (Sister: HCV)
Allergies / Home Medications
Allergies
Allergy/AdvReac Type Severity Reaction Status Date / Time
No Known Allergies Allergy Verified 03/27/25 10:55
Home Medications
�Medication �Instructions �Recorded �Confirmed �Last Taken �Type
allopurinol 100 mg tablet 100 mg PO DAILY Gout 06/24/18 03/27/25 2 Days Ago History
~01/08/24
lisinopril 20 mg tablet 10 mg PO DAILY Blood Pressure 06/24/18 03/27/25 2 Days Ago History
~01/08/24
metformin 850 mg tablet 850 mg PO TID Diabetes 06/24/18 03/27/25 2 Days Ago History
~01/08/24
metoprolol tartrate 100 mg tablet 100 mg PO DAILY Blood Pressure 06/24/18 03/27/25 2 Days Ago History
~01/08/24
simvastatin 40 mg tablet 40 mg PO Daily High Cholesterol 10/30/18 03/27/25 2 Days Ago History
~01/08/24
glimepiride 2 mg tablet 2 mg PO DAILY Diabetes #30 tabs 01/13/24 03/27/25 Unknown Rx
risankizumab-rzaa 150 mg/mL 150 mg SC Q12W 03/27/25 03/27/25 Unknown History
subcutaneous pen injector (Skyrizi)
Review of Systems
-
History Source: Patient
All other systems: Negative unless noted
Vitals / Labs / Diagnostic Testing
Vital Signs
Temp Pulse Resp BP Pulse Ox
98.8 F 99 14 126/87 94
03/27/25 10:55 03/27/25 14:30 03/27/25 14:30 03/27/25 14:00 03/27/25 14:30
Lab Data
03/27/25 11:29
03/27/25 11:29
Laboratory Results
03/27/25
13:19
PT 13.0
INR 0.95
APTT 27.0
Diagnostic Testing:
Physical Exam
-
HEENT: Normocephalic and Anicteric
Cardiovascular: S1/S2 and Peripheral Edema (negative)
Respiratory: Wheeze (negative), Rales (bases), Rhonchi (negative) and Non-Labored Respirations
GI: Soft, Non Distended, Non Tender and Normal Bowel Sounds
Neurology: AO x 3 and Tremors (negative)
Skin: Warm and Dry
General: Respiratory Distress (negative), Comfortable, Fever (negative) and Chills (negative)
Assessment
-
Assessment: 74-year-old M with PMHx of left-sided PE (December 2023), former tobacco smoker, emphysema, psoriasis on Skyrizi, DM type II, HTN, gout, urethral stricture s/p buccal mucosa urethroplasty (November 2024), and BPH s/p multiple TURP who presents
with dizziness/lightheadedness. He had an episode of cold sweats this AM, and later this AM he passed out and woke up on the floor. He now has left sided shoulder pain from the fall. Because of how he looked, he came to the ER. He was afebrile
in the ER with pulse rate 105, RR: 18, BP 129/83 and SpO2 96% on room air. Labs pertinent for Na 133, sHCO3 17, troponin 0.058, and CT chest was positive for bilateral pulmonary embolism with moderate/large clot burden and suspected RV strain. PERT
alert called. [employer] service consulted for further recommendations.
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
Impression:
#Acute submassive PE with RV strain (chemical evidence and radiographic suspicion) - appears unprovoked - PESI score: 94 = intermediate risk
#Syncope (TATTOO IDENTIFIER) due to above
#Elevated troponin due to above
#Suspected right lower extremity DVT
#Hyponatremia
#Non-anion gap metabolic acidosis
#DM type II c/b hyperglycemia
#Psoriasis on Skyrizi
#History of left-sided PE (December 2023) s/p Xarelto for 6 months (finished in May 2024)
#BPH with Hx of urethral stricture with buccal mucosal urethroplasty in November 2024 and repeat TURP on 02/09/2025
Plan:
- Patient presented with shortness of breath and was found to have a bilateral PE with RV strain seen chemically and suspected radiographically
- Although he has had two procedures since November 2024, he denies being bed-bound or sedentary since these were performed
- He has a Hx of left-sided PE from CTA chest on 01/10/2024, and difficult to say if this current PE is a recurrent PE or additional to his prior without full resolution of his previous clot. His current PE has similar location on his left sided
pulmonary arteries, however it is more extensive now
- He did get treated with Eliquis for 6 months previously, which finished in May 2024
- Troponin elevated at 0.058 and this should be trended until it peaks
- POC bedside US performed by Dr. Yagn in the ER, showing RV enlargement without D sign - meaning there is no significant RV strain; recommend systemic anticoagulation and do not recommend catheter directed thrombolysis or embolectomy at this
time especially given that the patient is breathing comfortably on room air at rest and saturating 97% with heart rate 103, and normotensive at 128/86
- Continue heparin drip and eventually transition to Eliquis
- CM consult to assess affordability of NOAC
- Check official echo
- Check bilateral lower extremity duplex
- Recommend outpatient hematology consult to assess if pt needs lifelong AC, lucy given this is his 2nd event
- Patient reports being UTD with his colonoscopy, last done 2 years ago - polyp removed, and he was not called with the results.
- Former tobacco smoker, >35 pack year Hx, quit approx 30 years ago; he does not qualify for lung cancer screening
- He already follows with a [facility] at [place] with Dr. Wong due to emphysema; pt does not use any inhalers
- He does use Risankizumab for psoriasis --> thrombus formation is not a known side effect from this medication treatment, that he gets every 3 months (150mg)
- Maintain SpO2 >90-94%, using supplemental O2 if needed
- If saturations are <96% on room air at rest, then check ambulatory pulse ox prior to discharge
- prn nebulized bronchodilators - not currently bronchospastic
- Incentive spirometer encouraged 10x per hour for at least 4 hrs a day
- Maintain MAP>65
- Monitor for sudden drops in SBP by >25 % or rise in HR >120-130 (sustained changes in vitals >5 mins) as this could reflect worsening PE & developing obstructive shock
- Replete electrolytes with K>4, Mg>2
- Maintain euglycemia with goal BG 140-180; HbA1C: 7.2 on 01/13/2024 - defer re-testing to primary team
- Trend H/H and transfuse if needed to keep Hb>7-8g/dL; keep plt>50k (not that he is on systemic AC)
- DVT ppx: Heparin gtt
Patient's , Nina, present at bedside and all questions were answered to her satisfaction.
Admit to IMU; Pulmonary service will continue to follow along. Advised to follow up with his own [facility] after discharge, or he can follow with us. Will leave our office information in his chart in event he wishes to see us.
Data:
CTA Chest 03/27/2025: Positive for acute pulmonary thromboembolus involving the bilateral main, lobar, and segmental branches. Moderate to large clot burden. Right heart strain is suspected.
Total time spent today was 78 minutes for this encounter. Time includes reviewing laboratory test/imaging results, reviewing pertinent medical records, obtaining and reviewing medical history, performing an appropriate exam, ordering medications,
tests and procedures. Time also includes documentation of this encounter, coordinating patient care and communicating with other healthcare professionals. Total time does not include separately billed tests performed on this date of service.
--- NOTE | 2025-03-27 15:18 | CM ---
CM met with pt and spouse/Lil
They reside in a 2SH with 2STE, full flight to 2nd floor
Pt is independent with his ADLs, drives+
Denies use of DMEs and financial insecurities
Denies VN/SNF hx
PCP- Char Lugo
Rx- Jane/Cristina Ricci
Discharge Disposition- anticipate home, likely no needs
--- NOTE | 2025-03-27 17:10 | PTCARENOTE ---
Patient arrived to IMU. Stand and pivot from stretcher to bed. AOx3. On RA with SpO2 greater than 92%. BP stable. NSR-sinus tach on monitor. Patient stated that he had TURP in January and has retention issues post surgery. Patient stated that he
needs to urinate now. Urinal given to patient. Will continue to monitor. Heparin gtt running at 15/hr. Family at bedside. Call bridges within reach, bed in lowest position, and bed of wheels locked.
[2025-03-27 17:33] LABS: Glucose - Point of Care 253 mg/dl (70-99)
[2025-03-27] MEDS: NOVOLOG FLEXPEN-LOW RESISTANCE 3 UNITS SC (18:14)
[2025-03-27 18:28] LABS: Troponin I 0.225 ng/ml
[2025-03-27 20:01] LABS: APTT 111.5 Sec (23.4-35.0)
[2025-03-27 21:55] LABS: Glucose - Point of Care 224 mg/dl (70-99)
[2025-03-27] MEDS: TYLENOL 650 MG PO (23:11)
--- NOTE | 2025-03-27 23:41 | PTCARENOTE ---
pt aaox3, pleasant, able to make needs known. remains on heparin gtt for B/L pulm emboli. Heparin gtt running at 13ml/hr at this time. Next PTT due at 0215. C/o pain in L shoulder due to fall prior to admission. ROLL WEIGHER notified via tiger text, 650mg
tylenol ordered and given. Pt ambulated to BR with standby assist x1, no c/o dizziness or lightheadedness. Mildly LEE and tachycardic. HR 110-120s during ambulation. Pt resting comfortably in bed at this time. VSS. Care ongoing.
[2025-03-28] VITALS (12 sets, daily range): BP systolic 92–140; BP diastolic 65–88
[2025-03-28 02:23] LABS: Hematocrit 38.6 % (39.0-52.0); Hemoglobin 14.4 g/dL (13.0-18.0); Mean Corp Hgb Conc. 37.3 g/dL (33.0-37.0); Mean Corpuscular Volume 90.6 fL (80.0-94.0); Platelet Count 185 10^3/uL (130-400); Red Cell Dist. Width 12.4 % (11.5-14.5)
[2025-03-28 02:35] LABS: APTT 62.7 Sec (23.4-35.0)
[2025-03-28 03:05] LABS: Troponin I 0.299 ng/ml
[2025-03-28] MEDS: HEPARIN 6700 UNITS IV ×2 (03:11→17:51)
[2025-03-28 03:47] LABS: ALT (SGPT) 17 U/L (0-50); AST (SGOT) 21 U/L (17-59); Albumin 4.1 g/dl (3.5-5.0); Alkaline Phosphatase 42 U/L (38-126); Blood Urea Nitrogen 23 mg/dl (9-20); Calcium 8.9 mg/dl (8.4-10.2); Carbon Dioxide 22 mmol/L (22-30); Chloride 107 mmol/L (98-107); Estimated Creatinine Clearance 61 ml/min; Glucose 146 mg/dl (70-99); Potassium 4.8 mmol/L (3.5-5.1); Sodium 137 mmol/L (135-145); Total Protein 6.6 g/dl (6.3-8.2); eGFR > 60.00
[2025-03-28] MEDS: HEPARIN 25000 UNITS/250 ML IV (07:25)
[2025-03-28 08:04] LABS: Glucose - Point of Care 195 mg/dl (70-99)
[2025-03-28] MEDS: NOVOLOG FLEXPEN-LOW RESISTANCE 1 UNITS SC ×2 (08:51→17:26)
[2025-03-28] MEDS: LIPITOR 20 MG PO (08:52)
[2025-03-28] MEDS: TOPROL XL 100 MG PO (08:52)
[2025-03-28] MEDS: ZYLOPRIM 100 MG PO (08:52)
[2025-03-28 09:02] LABS: Glycohemoglobin (HgbA1c) 6.2 % (4.0-5.6)
[2025-03-28 09:46] LABS: APTT 149.1 Sec (23.4-35.0)
--- NOTE | 2025-03-28 10:06 | W.PN.HOSP.TC ---
Today's Communication/Plan
-
see plan
Assessment / Plan
Assessment / Plan
Gen: NAD, AAOx3.
Eyes: EOMI, PERRLA, no scleral icterus.
Neck: supple.
CV: RRR, +S1/S2, no m/r/g.
Resp: remains CTAB anteriorly, no rales, wheezes, or rhonchi.
Abd: remains +BS, soft, NT, ND
Skin: No rashes.
Neuro: CN 2-12 intact, non-focal.
Psych: Normal mood and affect.
CTA chest: Positive for acute pulmonary thromboembolus involving the bilateral main, lobar, and segmental branches. Moderate to large clot burden. Right heart strain is suspected.
Acute PE:
-CTA chest above
-with suspected RV strain based on CTA chest
-cont Heparin gtt
-PERT alert activated
-bedside echo on admission without RV strain
-currently saturating well on RA
-recent surgery so likely provoked PE but regardless, patient will require lifelong anticoagulation as he has had a pulmonary embolism approximately 14 months ago
-check echo and B/L LE U/S
Essential HTN:
-cont BB with holding parameters
DM2:
-SSI/accuchecks
-a1c 6.2%
-diabetic diet
Other problems:
Hyperlipidemia
History of multiple urological surgeries, last one 6 weeks ago
Psoriasis
Emphysema, not in acute exac, saturating well on RA
Gout: cont allopurinol
Thoracic aortic aneurysm
Anticipated Discharge: 24 - 48 hours
Subjective/Interval History
-
Date of Service: March 28, 2025
Patient reports having some intermittent chest discomfort.
Objective Data
-
Labs:
Laboratory Results
03/28/25 03/28/25
02:14 09:17
WBC 11.0 H
Hgb 14.4
Hct 38.6 L
Plt Count 185
APTT 62.7 H 149.1 H
Sodium 137
Potassium 4.8
Chloride 107
Carbon Dioxide 22
BUN 23 H
Creatinine 1.2
Glucose 146 H
Calcium 8.9
Total Bilirubin 1.1
AST 21
ALT 17
Alkaline Phosphatase 42
Vital Signs:
Vital Signs
Temp Pulse Resp BP Pulse Ox
97.6 F 89 22 92/72 94
03/28/25 07:15 03/28/25 08:00 03/28/25 08:00 03/28/25 08:00 03/28/25 09:34
I&O
03/27/25 03/28/25 03/29/25
06:59 06:59 06:59
Intake Total 480 / 480
Output Total 1300 / 1300 600 / 600
Balance -820 / -820 -600 / -600
[2025-03-28 10:14] LABS: Troponin I 0.175 ng/ml
--- NOTE | 2025-03-28 10:15 | W.PN.PUL3 ---
Today's Communication / Plan
-
Cont. heparin gtt for 24-48hr - follow ptt and if stable transition to PO AC, likely lifelong.
Will follow ECHO and LE dopplers
Assessment
-
Assessment: 74-year-old M with PMHx of left-sided PE (December 2023), former tobacco smoker, emphysema, psoriasis on Skyrizi, DM type II, HTN, gout, urethral stricture s/p buccal mucosa urethroplasty (November 2024), and BPH s/p multiple TURP who presents
with dizziness/lightheadedness. He had an episode of cold sweats this AM, and later this AM he passed out and woke up on the floor. He now has left sided shoulder pain from the fall. Because of how he looked, he came to the ER. He was afebrile
in the ER with pulse rate 105, RR: 18, BP 129/83 and SpO2 96% on room air. Labs pertinent for Na 133, sHCO3 17, troponin 0.058, and CT chest was positive for bilateral pulmonary embolism with moderate/large clot burden and suspected RV strain. PERT
alert called. Checking Department Supervisor service consulted for further recommendations.
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
Impression:
#Acute submassive PE with RV strain (chemical evidence and radiographic suspicion) - appears unprovoked - PESI score: 94 = intermediate risk
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
#Elevated troponin due to above
#Suspected right lower extremity DVT
#Hyponatremia
#Non-anion gap metabolic acidosis
#DM type II c/b hyperglycemia
#Psoriasis on Skyrizi
#History of left-sided PE (December 2023) s/p Xarelto for 6 months (finished in May 2024)
#BPH with Hx of urethral stricture with buccal mucosal urethroplasty in November 2024 and repeat TURP on 02/09/2025
Plan:
- Bilateral PE with RV strain seen chemically and suspected radiographically
- Remains hemodynamically stable, not hypoxemic or tachycardic.
- Although he has had two procedures since November 2024, he denies being bed-bound or sedentary since these were performed
- He has a Hx of left-sided PE from CTA chest on 01/10/2024, and difficult to say if this current PE is a recurrent PE or additional to his prior without full resolution of his previous clot. His current PE has similar location on his left sided
pulmonary arteries, however it is more extensive now
- He did get treated with Eliquis for 6 months previously, which finished in May 2024
- Troponin elevated at 0.058 -trending lower.
- POC bedside US performed by Dr. Yang in the ER, showing RV enlargement without D sign - meaning there is no significant RV strain;
On systemic anticoagulation and
Catheter directed thrombolysis or embolectomy was not recommended- at this time especially given that the patient stability and lack of need for supplemental oxygen.
- Continue heparin drip and eventually transition to Eliquis in next 24-48hr depnding on clinical situation.
- CM consult to assess affordability of NOAC
- Check official echo- pending
- Check bilateral lower extremity duplex -pending
- Recommend outpatient hematology consult to assess if pt needs lifelong AC, lucy given this is his 2nd event- likely will be required.
- Patient reports being UTD with his colonoscopy, last done 2 years ago - polyp removed, and he was not called with the results.
- Former tobacco smoker, >35 pack year Hx, quit approx 30 years ago; he does not qualify for lung cancer screening
- He already follows with a [facility] at [place] with Dr. Wong due to emphysema; pt does not use any inhalers
- He does use Risankizumab for psoriasis --> thrombus formation is not a known side effect from this medication treatment, that he gets every 3 months (150mg)
- If saturations are <96% on room air at rest, then check ambulatory pulse ox prior to discharge
- prn nebulized bronchodilators - not currently bronchospastic
- Maintain MAP>65
- Monitor for sudden drops in SBP by >25 % or rise in HR >120-130 (sustained changes in vitals >5 mins) as this could reflect worsening PE & developing obstructive shock
- DVT ppx: Heparin gtt
Patient's , Nina, present at bedside and all questions were answered to her satisfaction by Dr. Parish.
Pulmonary service will continue to follow along. Advised to follow up with his own [facility] after discharge, or he can follow with us.
Will leave our office information in his chart in event he wishes to see us.
Data:
CTA Chest 03/27/2025: Positive for acute pulmonary thromboembolus involving the bilateral main, lobar, and segmental branches. Moderate to large clot burden. Right heart strain is suspected.
Subjective Data
-
Date of Service:
Date of Service: March 28, 2025
Chief Complaint: Pulmonary Follow Up (Acute pulmonary embolism)
Subjective:
Denies SOB or chest pain at rest.
Was able to ambulate to restroom without symptoms.
Review of Systems
General: Fever (n)
Cardiopulmonary: Dyspnea (none at rest), Cough (n) and Sputum Production (n)
GI: Abdominal Pain (n) and Nausea (n)
Neuro: Headache (n)
Objective Data
Data Reviewed
Vital Signs / I&O / Oxygen:
Vital Signs
Temp Pulse Resp BP Pulse Ox
97.6 F 89 22 92/72 94
03/28/25 07:15 03/28/25 08:00 03/28/25 08:00 03/28/25 08:00 03/28/25 09:34
Intake and Output
03/27/25 03/28/25 03/29/25
06:59 06:59 06:59
Intake Total 480 / 480
Output Total 1300 / 1300 600 / 600
Balance -820 / -820 -600 / -600
SaO2 94
Physical Exam
General: Comfortable
HEENT: Normocephalic
Cardiovascular: S1-S2
Respiratory: Clear and Non-Labored Respirations
GI: Soft and Non Distended
Neurology: Awake, Alert, AO x 3 and No Motor Deficits
Skin: Warm
Labs/Micro/Reports
Lab Data
03/28/25 02:14
03/28/25 02:14
Laboratory Results
03/27/25 03/27/25 03/28/25
13:19 19:43 02:14
PT 13.0
INR 0.95
APTT 27.0 111.5 H 62.7 H
03/28/25
09:17
PT
INR
APTT 149.1 H
--- NOTE | 2025-03-28 11:26 | CM ---
Following up on Patient. RN stated that patient is on a Heparin drip now for bilateral PE. Thus far, no discharge needs.
PLAN: Anticipate Home No Needs
[2025-03-28] MEDS: NOVOLOG FLEXPEN-LOW RESISTANCE 2 UNITS SC (12:07)
[2025-03-28 12:31] LABS: Glucose - Point of Care 212 mg/dl (70-99)
--- NOTE | 2025-03-28 14:23 | PTCARENOTE ---
Caring for pt throughout the day. Aox3 and very pleasant. SR to ST on Tele monitor. Heparin drip infusing as ordered, see intervention. OOB to chair and ambulating to BR with standby assist. at bedside, updated on plan of care. Ringing
appropriately, call bridges within reach.
[2025-03-28 17:24] LABS: Glucose - Point of Care 190 mg/dl (70-99)
[2025-03-28 17:34] LABS: APTT 56.5 Sec (23.4-35.0)
[2025-03-28 21:19] LABS: Glucose - Point of Care 196 mg/dl (70-99)
[2025-03-29] VITALS (10 sets, daily range): BP systolic 103–149; BP diastolic 74–89
[2025-03-29 00:32] LABS: APTT 174.3 Sec (23.4-35.0)
[2025-03-29] MEDS: HEPARIN 25000 UNITS/250 ML IV ×2 (02:44→20:26)
--- NOTE | 2025-03-29 03:24 | PTCARENOTE ---
remains on heparin gtt. last PTT 174.3. Heparin gtt on hold for 1hr, then decreased by 3ml/hr. Currently running at 13ml/hr through [place]. Pt resting comfortably in bed at this time. Care ongoing.
--- NOTE | 2025-03-29 07:00 | PTCARENOTE ---
Unable to verify VS from prior shift.
[2025-03-29] MEDS: TOPROL XL 100 MG PO (08:20)
[2025-03-29] MEDS: ZYLOPRIM 100 MG PO (08:20)
[2025-03-29] MEDS: LIPITOR 20 MG PO (08:20)
[2025-03-29 08:41] LABS: Hematocrit 42.3 % (39.0-52.0); Hemoglobin 15.8 g/dL (13.0-18.0); Mean Corp Hgb Conc. 37.4 g/dL (33.0-37.0); Mean Corpuscular Volume 92.6 fL (80.0-94.0); Platelet Count 192 10^3/uL (130-400); Red Cell Dist. Width 12.2 % (11.5-14.5)
[2025-03-29 08:47] LABS: APTT 54.9 Sec (23.4-35.0)
[2025-03-29 08:58] LABS: Glucose - Point of Care 212 mg/dl (70-99)
[2025-03-29] MEDS: HEPARIN 6700 UNITS IV (09:03)
[2025-03-29] MEDS: NOVOLOG FLEXPEN-LOW RESISTANCE 2 UNITS SC ×2 (09:06→16:58)
--- NOTE | 2025-03-29 09:46 | W.PN.PUL3 ---
Today's Communication / Plan
-
Will continue heparin drip for additional 24 hours and transition to oral anticoagulants tomorrow morning given patient's high Risk features.
Increase activity as able around the room.
Lifelong anticoagulation recommended
He will continue to follow-up with his primary pulmonary at [facility] in the outpatient setting
Will continue to follow while in the hospital
Assessment
-
Assessment: 74-year-old M with PMHx of left-sided PE (December 2023), former tobacco smoker, emphysema, psoriasis on Skyrizi, DM type II, HTN, gout, urethral stricture s/p buccal mucosa urethroplasty (November 2024), and BPH s/p multiple TURP who presents
with dizziness/lightheadedness. He had an episode of cold sweats this AM, and later this AM he passed out and woke up on the floor. He now has left sided shoulder pain from the fall. Because of how he looked, he came to the ER. He was afebrile
in the ER with pulse rate 105, RR: 18, BP 129/83 and SpO2 96% on room air. Labs pertinent for Na 133, sHCO3 17, troponin 0.058, and CT chest was positive for bilateral pulmonary embolism with moderate/large clot burden and suspected RV strain. PERT
alert called. Revenue Field Auditor service consulted for further recommendations.
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
Impression:
#Acute submassive PE with RV strain (chemical evidence and radiographic suspicion) - appears unprovoked - PESI score: 94 = intermediate risk
# Right peroneal DVT
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
#Elevated troponin due to above
#Suspected right lower extremity DVT
#Hyponatremia
#Non-anion gap metabolic acidosis
#DM type II c/b hyperglycemia
#Psoriasis on Skyrizi
#History of left-sided PE (December 2023) s/p Xarelto for 6 months (finished in May 2024)
#BPH with Hx of urethral stricture with buccal mucosal urethroplasty in November 2024 and repeat TURP on 02/09/2025
Plan:
- Bilateral PE with RV strain -echocardiogram noted with RV dilatation similar to December 2023. Moderately dilated hypokinetic right ventricle. Mild LVH. Mild TR. Estimated pulmonary pressure 34 mmHg.
-Right peroneal DVT noted on Dopplers.
-
- Remains hemodynamically stable, not hypoxemic or tachycardic.
-Ambulated to the restroom without dizziness or significant shortness of breath.
- Although he has had two procedures since November 2024, he denies being bed-bound or sedentary since these were performed
- He has a Hx of left-sided PE from CTA chest on 01/10/2024, and difficult to say if this current PE is a recurrent PE or additional to his prior without full resolution of his previous clot. His current PE has similar location on his left sided
pulmonary arteries, however it is more extensive now
- He did get treated with Eliquis for 6 months previously, which finished in May 2024
- Mildly elevated troponinFrom RV strain-trending lower. Patient denies any chest pain.
Catheter directed thrombolysis or embolectomy was not recommended- at this time especially given that the patient stability and lack of need for supplemental oxygen.
- Would continue heparin drip for additional 24 hours given presentation with syncope and significant RV dysfunction and high risk features.
- If stable overnight can transition to oral anticoagulation tomorrow morning 03/30/2025.
- Recommend outpatient hematology consult to assess if pt needs lifelong AC, lucy given this is his 2nd event- likely will be required.
-
- Patient reports being UTD with his colonoscopy, last done 2 years ago - polyp removed, and he was not called with the results.
- Former tobacco smoker, >35 pack year Hx, quit approx 30 years ago; he does not qualify for lung cancer screening
- He already follows with a [facility] Associate at [facility] with Dr. Wong due to emphysema; pt does not use any inhalers
- He does use Risankizumab for psoriasis --> thrombus formation is not a known side effect from this medication treatment, that he gets every 3 months (150mg)
History of mild COPD: Not on bronchodilators.
Follows yearly with pulmonary at [facility].
- Maintain MAP>65
- Monitor for sudden drops in SBP by >25 % or rise in HR >120-130 (sustained changes in vitals >5 mins) as this could reflect worsening PE & developing obstructive shock
- DVT ppx: Heparin gtt
Patient's , Nina, present at bedside and all questions were answered to her satisfaction by Dr. Parish.
Dr. Arroyo updated patient and on the bedside 03/28/2025 at 03/29/2025.
Pulmonary service will continue to follow along. Advised to follow up with his own [facility]ology Associate after discharge, or he can follow with us.
Will leave our office information in his chart in event he wishes to see us.
-
If stable overnight, hopefully can discharge tomorrow 03/30/2025
Data:
CTA Chest 03/27/2025: Positive for acute pulmonary thromboembolus involving the bilateral main, lobar, and segmental branches. Moderate to large clot burden. Right heart strain is suspected.
Subjective Data
-
Date of Service:
Date of Service: March 29, 2025
Chief Complaint: Pulmonary Follow Up (Acute pulmonary embolism)
Subjective:
No overnight events.
Patient asymptomatic at rest
He was able to ambulate to the restroom without lightheadedness, chest pain or shortness of breath.
Review of Systems
General: Fever (n)
HEENT: Epistaxis (n)
Cardiopulmonary: Dyspnea (none at rest)
GI: Abdominal Pain (n) and Nausea (n)
Neuro: Headache (n)
Objective Data
Data Reviewed
Vital Signs / I&O / Oxygen:
Vital Signs
Temp Pulse Resp BP Pulse Ox
97.5 F 77 16 123/78 94
03/29/25 07:10 03/29/25 08:00 03/29/25 08:00 03/29/25 08:00 03/29/25 08:11
Intake and Output
03/28/25 03/29/25 03/30/25
06:59 06:59 06:59
Intake Total 480 / 480 480 / 480
Output Total 1300 / 1300 1750 / 1750
Balance -820 / -820 -1270 / -1270
SaO2 94
Physical Exam
General: Comfortable
HEENT: Normocephalic
Cardiovascular: S1-S2
Respiratory: Clear and Non-Labored Respirations
GI: Soft and Non Distended
Neurology: Awake, Alert, AO x 3 and No Motor Deficits
Skin: Warm
Labs/Micro/Reports
Lab Data
03/29/25 08:19
03/28/25 02:14
Laboratory Results
03/28/25 03/28/25 03/28/25
09:17 17:12 23:58
APTT 149.1 H 56.5 H 174.3 H*
03/29/25
08:19
APTT 54.9 H
--- NOTE | 2025-03-29 10:04 | W.PN.HOSP.TC ---
Today's Communication/Plan
-
see plan
Assessment / Plan
Assessment / Plan
Gen: remains NAD, AAOx3.
Eyes: EOMI, PERRLA, no scleral icterus.
Neck: supple.
CV: RRR, +S1/S2, no m/r/g.
Resp: continues to remain CTAB anteriorly, no rales, wheezes, or rhonchi.
Abd: continues to remain +BS, soft, NT, ND
Skin: No rashes.
Neuro: CN 2-12 intact, non-focal.
Psych: Normal mood and affect.
CTA chest: Positive for acute pulmonary thromboembolus involving the bilateral main, lobar, and segmental branches. Moderate to large clot burden. Right heart strain is suspected.
Echo:
1. Ejection fraction is 55-60% by visual assessment.
2. Compared to a prior transthoracic echocardiogram study from December 2023 Right ventricle was dilated in December 2023 and similar to current study but was not mentioned in 2023 report. no significant changes are seen.
3. Moderately dilated hypokinetic right ventricle.
4. Mild concentric left ventricular hypertrophy.
5. Mild tricuspid regurgitation. Estimated pulmonary artery pressure of 34 mmHg assuming a right atrial pressure of 3 mmHg.
Acute PE/RLE DVT:
-CTA chest above
-with suspected RV strain based on CTA chest on admission
-PERT alert activated
-bedside echo on admission without RV strain
-currently saturating well on RA
-recent surgery so likely provoked PE but regardless, patient will require lifelong anticoagulation as he has had a pulmonary embolism approximately 14 months ago
-Echo and B/L LE U/S above
-cont Heparin gtt, transition to Eliquis in AM
Essential HTN:
-cont BB with holding parameters
DM2:
-SSI/accuchecks
-a1c 6.2%
-diabetic diet
Other problems:
Hyperlipidemia
History of multiple urological surgeries, last one 6 weeks ago
Psoriasis
Emphysema, not in acute exac, saturating well on RA
Gout: cont allopurinol
Thoracic aortic aneurysm
Anticipated Discharge: Within 24 hours
Subjective/Interval History
-
Date of Service: March 29, 2025
No new complaints.
Objective Data
-
Labs:
Laboratory Results
03/28/25 03/29/25 03/29/25
23:58 08:19 15:00
WBC 8.8
Hgb 15.8
Hct 42.3
Plt Count 192
APTT 174.3 H* 54.9 H Pending
Vital Signs:
Vital Signs
Temp Pulse Resp BP Pulse Ox
97.5 F 77 16 123/78 94
03/29/25 07:10 03/29/25 08:00 03/29/25 08:00 03/29/25 08:00 03/29/25 08:11
I&O
03/28/25 03/29/25 03/30/25
06:59 06:59 06:59
Intake Total 480 / 480 480 / 480
Output Total 1300 / 1300 1750 / 1750
Balance -820 / -820 -1270 / -1270
[2025-03-29] MEDS: NOVOLOG FLEXPEN-LOW RESISTANCE 4 UNITS SC (12:33)
[2025-03-29 12:38] LABS: Glucose - Point of Care 325 mg/dl (70-99)
--- NOTE | 2025-03-29 12:39 | PTCARENOTE ---
Caring for pt throughout the day. Aox3 and very pleasant. SR to ST on Tele monitor. Heparin drip infusing as ordered, see intervention. Ambulating to BR with assist of one. at bedside, updated on plan of care. Ringing appropriately, call bridges
within reach.
--- NOTE | 2025-03-29 12:43 | PN.CDI ---
CDI
- -
CDI:
Physician Documentation Request
Admit Date: 03/27/25 14:42
Dear Doctor Lali,
Patient admitted with acute PE.
CTA with suspected RV strain.
hospitalist note states '-bedside echo on admission without RV strain'
Pulmonary progress note states 'Acute submassive PE with RV strain (chemical evidence and radiographic suspicion)'
03/28 Echo summary 'moderate dilated hypokinetic right ventricle. Mild tricuspid regurgitation. Estimated pulmonary artery pressure of 34 mmHg assuming a right atrial pressure of 3 mmHg.'
Please clarify :
PE with cor pulmonale
PE without cor pulmonale
Other
Use of terms such as suspected, likely, concern for, or probable (associated with a specific diagnosis that is being evaluated, monitored, or treated as if it exists) are acceptable and can be coded in the inpatient setting, when documented at the
time of discharge.
Thank you,
Clover Whitney RN, BSN
CDI Specialist
tiger text
Please use your independent medical judgment in providing your response.
--- NOTE | 2025-03-29 12:49 | PN.CDI ---
CDI
- -
CDI:
Physician Documentation Request
Admit Date: 03/27/25 14:42
Dear Doctor Lali,
Patient admitted with acute PE.
Troponin results:
Laboratory Tests
03/27/25 03/27/25 03/28/25
: 17:44 02:14
Troponin I 0.058 H* 0.225 H* D 0.299 H*
03/28/25
09:17
Troponin I 0.175 H* D
Please provide a diagnosis that supports the above lab abnormalities and additional evaluation/ monitoring:
Non ischemic myocardial injury
Type II NV demand ischemia
Other
Use of terms such as suspected, likely, concern for, or probable (associated with a specific diagnosis that is being evaluated, monitored, or treated as if it exists) are acceptable and can be coded in the inpatient setting, when documented at the
time of discharge.
Thank you,
Clover Whitney RN, BSN
CDI Specialist
tiger text
Please use your independent medical judgment in providing your response.
[2025-03-29 15:48] LABS: APTT 106.8 Sec (23.4-35.0)
--- NOTE | 2025-03-29 16:21 | CM ---
Following up on Patient. Note is in for patient to go home on Eliquis and Dr. Escalera would like Case Management to villanueva the medication. Dr. Escalera will send in the script in the AM. JAMES Estes to follow up.
PLAN: Home No Needs.
[2025-03-29 17:08] LABS: Glucose - Point of Care 233 mg/dl (70-99)
--- NOTE | 2025-03-29 20:00 | PTCARENOTE ---
Assumed care of patient. patient AOx3, lying in bed comfortably. Hep gtt infusing as ordered. Next PTT due at 2130. Patient assessed, vitals obtained-see flowsheets. Call bridges within reach. Plan of care reviewed with pt, no questions at this time.
[2025-03-29 21:10] LABS: Glucose - Point of Care 332 mg/dl (70-99)
[2025-03-29] MEDS: NOVOLOG FLEXPEN 4 UNITS SC (21:39)
[2025-03-29 22:10] LABS: APTT 71.5 Sec (23.4-35.0)
[2025-03-29] MEDS: HEPARIN 3400 UNITS IV (22:53)
[2025-03-30] VITALS: BP 130/80
[2025-03-30 00:05] LABS: Glucose - Point of Care 229 mg/dl (70-99)
[2025-03-30 02:00] VITALS: BP 121/76
[2025-03-30 04:00] VITALS: BP 123/84
[2025-03-30 05:46] LABS: APTT 113.9 Sec (23.4-35.0)
[2025-03-30 06:00] VITALS: BP 115/76
[2025-03-30 07:36] LABS: Glucose - Point of Care 219 mg/dl (70-99)
[2025-03-30 08:00] VITALS: BP 127/85
[2025-03-30] MEDS: NOVOLOG FLEXPEN-LOW RESISTANCE 2 UNITS SC (08:49)
[2025-03-30] MEDS: ELIQUIS 10 MG PO (08:50)
[2025-03-30] MEDS: ZYLOPRIM 100 MG PO (08:50)
[2025-03-30] MEDS: TOPROL XL 100 MG PO (08:50)
[2025-03-30] MEDS: LIPITOR 20 MG PO (08:50)
--- NOTE | 2025-03-30 09:16 | W.PN.HOSP.TC ---
Today's Communication/Plan
-
d/c
Assessment / Plan
Assessment / Plan
Gen: continues to remain NAD, AAOx3.
Eyes: EOMI, PERRLA, no scleral icterus.
Neck: supple.
CV: remains RRR, +S1/S2, no m/r/g.
Resp: CTAB anteriorly, no rales, wheezes, or rhonchi.
Abd: +BS, soft, NT, ND
Skin: No rashes.
Neuro: remains CN 2-12 intact, non-focal.
Psych: Normal mood and affect.
CTA chest: Positive for acute pulmonary thromboembolus involving the bilateral main, lobar, and segmental branches. Moderate to large clot burden. Right heart strain is suspected.
Echo:
1. Ejection fraction is 55-60% by visual assessment.
2. Compared to a prior transthoracic echocardiogram study from December 2023 Right ventricle was dilated in December 2023 and similar to current study but was not mentioned in 2023 report. no significant changes are seen.
3. Moderately dilated hypokinetic right ventricle.
4. Mild concentric left ventricular hypertrophy.
5. Mild tricuspid regurgitation. Estimated pulmonary artery pressure of 34 mmHg assuming a right atrial pressure of 3 mmHg.
Acute PE/RLE DVT:
-CTA chest above
-with suspected RV strain based on CTA chest on admission
-PERT alert activated
-bedside echo on admission without RV strain (cor pulmonale ruled out)
-currently saturating well on RA
-recent surgery so likely provoked PE but regardless, patient will require lifelong anticoagulation as he has had a pulmonary embolism approximately 14 months ago
-Echo and B/L LE U/S above
-was on Heparin gtt, now transitioned to Eliquis
Essential HTN:
-cont BB with holding parameters
DM2:
-SSI/accuchecks
-a1c 6.2%
-diabetic diet
-resume Metformin/Glimepiride on d/c
Other problems:
Nonischemic myocardial injury
Hyperlipidemia: cont statin
History of multiple urological surgeries, last one 6 weeks ago
Psoriasis
Emphysema, not in acute exac, saturating well on RA
Gout: cont allopurinol
Thoracic aortic aneurysm
Medically cleared for d/c.
Total time spent on d/c = 34 min. This included today's physical exam, progress note, review of laboratory and diagnostic data, preparation of discharge documents and prescriptions, and discussions about the pt's hospital course and discharge plan
with the patient and other nuclear medicine medical director involved in the patient's care.
Anticipated Discharge: Today
Subjective/Interval History
-
Date of Service: March 30, 2025
No new complaints.
Objective Data
-
Labs:
Laboratory Results
03/29/25 03/30/25 03/30/25
21:47 05:11 12:00
APTT 71.5 H 113.9 H Pending
Vital Signs:
Vital Signs
Temp Pulse Resp BP Pulse Ox
98.2 F 86 18 127/85 94
03/30/25 07:59 03/30/25 08:50 03/30/25 06:00 03/30/25 08:50 03/30/25 04:00
I&O
03/29/25 03/30/25 03/31/25
06:59 06:59 06:59
Intake Total 480 / 480
Output Total 1750 / 1750 400 / 400 200 / 200
Balance -1270 / -1270 -400 / -400 -200 / -200
--- NOTE | 2025-03-30 11:21 | CM ---
Following up on Patient. JAMES Estes called [facility] and his copay is $0. Patient mentioned mail order and he knows to take this script first then work out the eventual mail order for Jakob.
PLAN: Home No Needs. IMM completed.
--- NOTE | 2025-03-30 11:30 | PTCARENOTE ---
Reviewed all patient discharge info including Eliquis instructions. Pt verbalized understanding by going over the dates of the 10mg dose and the start of the 5mg dose, both BID. vital signs stable. Spouse on her way to pick him up for d.c.
[2025-03-30 11:38] VITALS: BP 125/82
--- NOTE | 2025-03-30 11:46 | W.DCSUMMARY ---
Discharge Summary
Discharge Data
Date of Admission: 03/27/25
Date of Discharge: 03/30/25
-
Pending Results: No
Hospital Course
Primary diagnoses:
Acute bilateral pulmonary emboli
Acute right lower extremity deep vein thrombosis
Secondary diagnoses:
Essential hypertension
Type 2 diabetes mellitus
Nonischemic myocardial injury
Hyperlipidemia
History of multiple urological surgeries, last one 6 weeks ago
Psoriasis
Emphysema
Gout
Thoracic aortic aneurysm
Consultants:
Pulmonary
Imaging:
CTA chest: Positive for acute pulmonary thromboembolus involving the bilateral main, lobar, and segmental branches. Moderate to large clot burden. Right heart strain is suspected.
Echo:
1. Ejection fraction is 55-60% by visual assessment.
2. Compared to a prior transthoracic echocardiogram study from December 2023 Right ventricle was dilated in December 2023 and similar to current study but was not mentioned in 2023 report. no significant changes are seen.
3. Moderately dilated hypokinetic right ventricle.
4. Mild concentric left ventricular hypertrophy.
5. Mild tricuspid regurgitation. Estimated pulmonary artery pressure of 34 mmHg assuming a right atrial pressure of 3 mmHg.
Hospital course: 74-year-old male who presented with a chief complaint of syncope as outlined in the H&P done on admission. CTA chest above. PERT alert was activated. Bedside echo on admission without RV strain (cor pulmonale ruled out). Patient
was saturating well on room air throughout hospitalization. He had had recent surgery so likely provoked PE but regardless, patient will require lifelong anticoagulation as he has had a pulmonary embolism approximately 14 months ago
Echo and B/L LE U/S above. Patient was on a heparin drip while hospitalized and transition to Eliquis on discharge.
Discharge Plan
-
Patient Disposition: Home (Routine Discharge)
Discharge Diagnosis/Procedures: Acute pulmonary embolism
Condition: Good
Diet: Diabetic, Carb Controlled
Activity: No strenuous activity
Driving Restrictions: As prior to admission
Referrals:
Bowry,Char, MD [Family Provider] - in less than 1 week
Ezequiel Yang MD [Active, Pulmonary Medicine] - in two to three weeks
Referral Note: Full PFT on day of office visit
Prescriptions:
New
Eliquis 5 mg Tablet
10 mg PO BID Qty: 26 0RF
Rx Instructions:
through 04/05/25PM
Eliquis 5 mg tablet
5 mg PO BID Qty: 60 0RF
Rx Instructions:
start 04/06/25AM
Continued
metformin 850 MG tablet
850 mg PO TID
allopurinol 100 MG tablet
100 mg PO DAILY
simvastatin 40 MG tablet
40 mg PO Daily
glimepiride 2 mg Tablet
2 mg PO DAILY Qty: 30 1RF
Rx Instructions:
Take 2 mg of glimepiride by mouth once daily
Skyrizi 150 mg/mL Pen Injector
150 mg SC Q12W
metoprolol succinate 100 mg Tablet Extended Release 24 Hr
100 mg PO DAILY
Discontinued
lisinopril 20 MG tablet
10 mg PO DAILY
Discharge Orders:
Discharge Patient (As Directed); Ordered 03/30/25
Ordered By: Andrew Escalera
Discharge Date and Time
Print Language: TAJIK
== END 2025-03-30 12:07 | disposition home or self-care (01) | DRG 176 ==
LOC: IMU 14:42
PROVIDERS: ADMITTING PHYSICIAN Internal Medicine; CONSULT PHYSICIAN Internal Medicine Critical Care Medicine; EMERGENCY PHYSICIAN Emergency Medicine; FAMILY PHYSICIAN Family Medicine
DX: I26.99 Other pulmonary embolism without acute cor pulmonale (principal); E87.20 Acidosis, unspecified; E87.1 Hypo-osmolality and hyponatremia; I82.451 Acute embolism and thrombosis of right peroneal vein; I5A Non-ischemic myocardial injury (non-traumatic); E11.65 Type 2 diabetes mellitus with hyperglycemia; E78.00 Pure hypercholesterolemia, unspecified; I11.9 Hypertensive heart disease without heart failure; N40.1 Benign prostatic hyperplasia with lower urinary tract symptoms; R33.8 Other retention of urine; L40.9 Psoriasis, unspecified; J43.9 Emphysema, unspecified; M10.9 Gout, unspecified; I71.20 Thoracic aortic aneurysm, without rupture, unspecified; Z96.1 Presence of intraocular lens; Z86.711 Personal history of pulmonary embolism; Z87.891 Personal history of nicotine dependence; Z90.79 Acquired absence of other genital organ(s); Z80.0 Family history of malignant neoplasm of digestive organs; Z79.899 Other long term (current) drug therapy; Z79.84 Long term (current) use of oral hypoglycemic drugs
CPT/HCPCS: 71275; 80048; 80053; 82962; 83036; 84484; 85025; 85027; 85610; 85730; 93005; 93306; 93970; 96361; 96374; 99291; Q9967